=== PATIENT | male | born 1970 | race Caucasian/White ===

== ENCOUNTER 2022-04-14 15:23 | Outpatient (CLI) | payer BC, SELFPAY ==
[2022-04-14 13:23] LABS: Albumin* 3.9 g/dL (3.3-5.0); Chloride* 102 mmol/L (96-114); Sodium* 138 mmol/L (135-149)
[2022-04-14 13:24] LABS: Potassium* 3.6 mmol/L (3.6-5.1)
[2022-04-14 13:26] LABS: Alanine Aminotransferase* 29 U/L (4-50); Alkaline Phosphatase* 121 U/L (40-150); Aspartate Amino Transferase* 37 U/L (12-35); Bilirubin Total* 0.5 mg/dL (0.1-1.5); Blood Urea Nitrogen* 15 mg/dL (7-30); Carbon Dioxide* 28 mmol/L (20-32); Cholesterol* 176 mg/dL (90-199); Creatinine* 1.1 mg/dL (0.5-1.5); Estimated Glomerular Filt Rate 81 ml/min; Glucose* 116 mg/dL (60-115)
[2022-04-14 13:27] LABS: Triglycerides* 241 mg/dL (40-149)
[2022-04-14 13:28] LABS: HDL Cholesterol* 38 mg/dL (>=40); LDL Cholesterol Calculated 90 mg/dL (<100)
[2022-04-14 13:29] LABS: Total Protein* 6.7 g/dL (6.0-8.3)
[2022-04-14 13:58] LABS: PSA Screen* 0.17 ng/mL (0.10-4.00); Thyroid Stimulating Hormone* 0.694 uIU/mL (0.270-4.20)
== END 2022-04-14 15:24 | disposition home or self-care (01) ==
PROVIDERS: PCP Family Medicine; Visit Provider Family Medicine
DX: Z00.00 Encounter for general adult medical examination without abnormal findings (principal); E78.5 Hyperlipidemia, unspecified; E03.9 Hypothyroidism, unspecified; I10 Essential (primary) hypertension; G47.33 Obstructive sleep apnea (adult) (pediatric); Z12.5 Encounter for screening for malignant neoplasm of prostate
CPT/HCPCS: 80053; 80061; 84153; 84443

== ENCOUNTER 2022-11-25 07:04 | Emergency (ER) | payer OTHER, BC, SELFPAY ==
[2022-11-25 07:10] VITALS: BP 155/89; PULSE 81; RESP 18; TEMP 36.6; O2SAT 96; BMI 46.2
--- NOTE | 2022-11-25 07:17 | CRLHL7_ITS ---
For Patients: As a result of the Cures Act, medical imaging exams and procedure reports are released immediately into your electronic medical record. You may view this report before your referring provider. If you have questions, please contact your health care provider. Indication: Injury Technique: A total of three views of the left ankle were acquired. Comparison: None Findings: Bones: Alignment is normal. No fractures or bone lesions. Joint spaces: Unremarkable. Soft tissues: Dorsal calcaneal spur Impression: No acute fracture, dislocation or destructive process. Dorsal calcaneal spur. Dictated by Wei Murcia MD @ 11/25/2022 7:40:11 AM (Electronically Signed)
--- NOTE | 2022-11-25 08:05 | ED_ITS ---
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 He notes that he was able to continue to work another hour but this morning his ankle is much more swollen and sore. Most of his pain is on the his heel and the lateral ankle. He has no numbness or tingling. Movement increases his pain. Denies hurting any other part of the body or loss of consciousness when he fell last night. Related Data Home Medications Medication Instructions Recorded Confirmed biotin 10,000 mcg capsule 10,000 cap PO 04/09/22 04/23/22 melatonin 3 mg-theanine 40 mg tab PO .QHS 04/09/22 04/23/22 tablet multivitamin 1 tab PO QDAY 04/09/22 04/23/22 omeprazole 20 mg capsule,delayed mg PO DAILY 04/09/22 04/23/22 release oxygen-air delivery systems 04/09/22 04/23/22 Previous Rx's Medication Instructions Recorded carvedilol 3.125 mg tablet 3.125 mg PO BID #180 tabs 04/23/22 fluticasone propionate 50 1 spray intranasal DAILY #48 grams 04/23/22 mcg/actuation nasal spray,suspension levothyroxine 50 mcg tablet 50 mcg PO DAILY #90 tabs 04/23/22 losartan 100 1 tab PO DAILY #90 tabs 04/23/22 mg-hydrochlorothiazide 25 mg tablet simvastatin 40 mg tablet 40 mg PO .Bedtime #90 tabs 04/23/22 peg 3350-electrolytes 236 240 ml PO Q10M #4,000 mL 05/05/22 gram-22.74 gram-6.74 gram-5.86 gram solution (Golytely) testosterone 40.5 mg transdermal DAILY #75 grams 05/15/22 Allergies Allergy/AdvReac Type Severity Reaction Status Date / Time Cat hair extract Allergy Severe itching Uncoded 04/23/22 07:21 and swelling Bee venom Allergy Intermediate itching Uncoded 04/23/22 07:21 and swelling Review of Systems Narrative: Denies head injury, loss of consciousness [facility] Surgical History History of open reduction and internal fixation (ORIF) procedure (2015) Status post tonsillectomy and adenoidectomy (1973) Social History Smoking Status: Current every day smoker Little interest or pleasure in doing things: not at all Feeling down, depressed, or hopeless: not at all Exam Narrative: Exam Narrative: Alert and oriented. No acute distress. No respiratory distress. Examination of the left ankle shows edema over the lateral malleolus with point tenderness in that area. Achilles appears to be intact. Sensation is intact. Movement increases discomfort. Const: Vital Signs, click to edit/add: Vital Signs - 24 hr 11/25/22 07:10 Temperature 97.9 F Pulse Rate [Right Pulse Oximeter] 81 Respiratory Rate 18 Blood Pressure [Ri ght Upper Arm] 155/89 H Pulse Oximetry 96 Oxygen Delivery Me thod Room Air Documenting provider has reviewed patient's vital signs: yes Course Course Hospital Course: Will obtain x-ray. Vital Signs Vital signs: Initial Vital Signs Temperature 97.9 F 11/25/22 07:10 Temperature Source Temporal Artery Scan 11/25/22 07:10 Pulse Rate 81 11/25/22 07:10 Respiratory Rate 18 11/25/22 07:10 Blood Pressure 155/89 H 11/25/22 07:10 Blood Pressure Mean 111 11/25/22 07:10 Blood Pressure Position Sitting 11/25/22 07:10 Pulse Oximetry 96 11/25/22 07:10 Oxygen Delivery Method 11/25/22 07:10 Vital Signs Temperature 97.9 F 11/25/22 07:10 Pulse Rate 81 11/25/22 07:10 Respiratory Rate 18 11/25/22 07:10 Blood Pressure 155/89 H 11/25/22 07:10 Pulse Oximetry 96 11/25/22 07:10 Oxygen Delivery Method 11/25/22 07:10 Temperature 97.9 F 11/25/22 07:10 Pulse Rate 81 11/25/22 07:10 Respiratory Rate 18 11/25/22 07:10 Blood Pressure 155/89 H 11/25/22 07:10 Pulse Oximetry 96 11/25/22 07:10 Oxygen Delivery Method 11/25/22 07:10 MDM - Extremity Injury (Lower) MDM Narrative Medical decision making narrative: 1. Left ankle [id number] negative for fracture. Will place this gentleman in a cam walker and have him follow-up with orthopedics. I do not think he would be able to work given the injury and his elevated BMI. May use Tylenol or ibuprofen as needed for discomfort. Imaging Data Left ankle x-ray: Attestation: I have reviewed the pertinent imaging results. My impression: No obvious fracture Radiologist's impression: No obvious fracture Discharge Plan Discharge Clinical Impression: Injury of ankle, left Patient Disposition: Home, Self-Care Condition: Improved Additional Instructions: No work until seen by Orthopedics. Note to accompany you. Ice elevation as much as possible. Ibuprofen or Tylenol may be used for discomfort. Prescriptions: No Action carvedilol 3.125 mg tablet 3.125 mg PO BID Qty: 180 3RF fluticasone propionate 50 mcg/actuation spray,suspension 1 spray intranasal DAILY Qty: 48 3RF levothyroxine 50 mcg tablet 50 mcg PO DAILY Qty: 90 3RF losartan-hydrochlorothiazide 100-25 mg tablet 1 tab PO DAILY Qty: 90 3RF simvastatin 40 mg tablet 40 mg PO .Bedtime Qty: 90 3RF omeprazole 20 mg capsule,delayed release(DR/EC) PO DAILY biotin 10,000 mcg capsule 10,000 cap PO multivitamin Tablet 1 tab PO QDAY melatonin-theanine 3-40 mg tablet PO .QHS (DME) oxygen-air delivery systems Device See Rx Instructions .Route Rx Instructions: As directed peg 3350-electrolytes [Golytely] 236-22.74-6.74 -5.86 gram recon soln 240 ml PO Q10M Qty: 4000 0RF Rx Instructions: until fecal effluent is clear testosterone 20.25 mg/1.25 gram (1.62 %) gel in metered-dose pump 40.5 mg transdermal DAILY Qty: 75 5RF Follow Up/Referrals: Damien Terry MD [Primary Care Provider] - Stand Alone Forms: [facility] Info Instructions
== END 2022-11-25 08:33 | disposition home or self-care (01) ==
PROVIDERS: Emergency Provider Family Medicine; PCP Family Medicine
DX: M25.572 Pain in left ankle and joints of left foot (principal); W00.9XXA Unspecified fall due to ice and snow, initial encounter
CPT/HCPCS: 73610; 99283

== ENCOUNTER 2022-12-15 10:05 | Outpatient (CLI) | payer BC, SELFPAY | END 2022-12-15 10:06 | disposition home or self-care (01) | LOC: NFLDREF 12-17 14:31 | PROVIDERS: PCP Family Medicine; Referring Provider Family Medicine | DX: E29.1 Testicular hypofunction (principal); E03.9 Hypothyroidism, unspecified | CPT/HCPCS: 84403 ==

== ENCOUNTER 2023-05-25 07:50 | Outpatient (CLI) | payer BC, SELFPAY | END 2023-05-25 07:51 | disposition home or self-care (01) | LOC: NFLDREF 21:51 | PROVIDERS: PCP Family Medicine; Referring Provider Family Medicine; Visit Provider Family Medicine | DX: Z00.00 Encounter for general adult medical examination without abnormal findings (principal); E03.9 Hypothyroidism, unspecified; E78.5 Hyperlipidemia, unspecified; R73.03 Prediabetes; E29.1 Testicular hypofunction; I10 Essential (primary) hypertension; E66.01 Morbid (severe) obesity due to excess calories; R73.09 Other abnormal glucose | CPT/HCPCS: 80053; 80061; 84403; 84439; 84443 ==

== ENCOUNTER 2023-09-09 07:31 | Outpatient (CLI) | payer BC, SELFPAY | END 2023-09-09 07:32 | disposition home or self-care (01) | LOC: NFLDREF 09-10 09:16 | PROVIDERS: PCP Family Medicine; Referring Provider Family Medicine; Visit Provider Family Medicine | DX: E87.5 Hyperkalemia (principal); E03.9 Hypothyroidism, unspecified | CPT/HCPCS: 84132; 84443 ==

== ENCOUNTER 2024-03-16 22:17 | Inpatient (IN) | payer BC, SELFPAY ==
[2024-03-16 22:24] VITALS: BP 150/78; PULSE 101; RESP 20; TEMP 36.8; O2SAT 96; BMI 48.8
--- NOTE | 2024-03-16 22:32 | CRLHL7_ITS ---
For Patients: As a result of the Century Cures Act, medical imaging exams and procedure reports are released immediately into your electronic medical record. You may view this report before your referring provider. If you have questions, please contact your health care provider. INDICATION: Right-sided abdominal pain. TECHNIQUE: CT abdomen and pelvis acquired with 149 cc of Isovue 370 IV contrast. COMPARISON: None. FINDINGS: Lower chest: Thin band of scar versus atelectasis in the right lower lobe. Liver: Unremarkable. Normal in size and attenuation. No suspicious masses. Gallbladder and bile ducts: Unremarkable. No stones or inflammation. No biliary dilatation. Pancreas: Unremarkable. No mass or inflammation. Spleen: Unremarkable. Normal in size. No masses. Adrenal glands: Unremarkable. No nodules. Kidneys: Unremarkable. No suspicious masses, stones, or hydronephrosis. GI tract: Small air-filled duodenal diverticulum in the 3rd portion of the duodenum. Markedly inflamed and dilated appendix in the right lower quadrant measuring 1.8 cm in diameter with robust periappendiceal inflammatory stranding. No evidence for perforation or abscess formation. Associated inflammation of the cecal base. No small bowel obstruction. The remainder of the colon is unremarkable. Vasculature: Abdominal aorta is normal in caliber. Mesenteric arteries are patent. Lymph nodes: No lymphadenopathy. Peritoneum/Abdominal Wall: Right lower quadrant inflammatory stranding. No free fluid, focal fluid collection, or free air. Unremarkable abdominal wall. Pelvis: Unremarkable. Bones: Unremarkable for age. IMPRESSION: Severely inflamed, acute appendicitis in the right lower quadrant. No evidence for perforation or abscess formation. Please note that all CT scans at this facility use dose modulation, iterative reconstruction, and/or weight-based dosing when appropriate to reduce radiation dose to as low as reasonably achievable. Dictated by Shaun Iniguez MD @ 03/16/2024 11:32:58 PM (Electronically Signed)
--- NOTE | 2024-03-16 22:35 | ED.GENADULT ---
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 Patient reports the pain in his abdomen has gotten worse it is in the right lateral quadrant lateral to his umbilicus and a little bit lower. He has not had any abdominal surgery. He does have other history of hypokalemia, allergies, hypothyroidism, hypogonadism, LEANNE, and morbid obesity. He has had GE reflux and elevated A1c as well. He also has hypertension. He reports the pain is worse. He has not had nausea. Not any blood in his urine or no urinary symptoms. He does report that on the car ride here he had increasing pain in his abdomen they would hit bumps in the car. Related Data Home Medications ?Medication ?Instructions ?Recorded ?Confirmed multivitamin 1 tab PO QDAY 04/09/22 03/16/24 oxygen-air delivery systems 04/09/22 05/28/23 omeprazole 20 mg capsule,delayed 40 mg PO DAILY 12/18/22 03/16/24 release biotin 10,000 mcg capsule 10,000 mcg PO DAILY 05/28/23 03/17/24 levothyroxine 25 mcg tablet 75 mcg PO QDAY 03/16/24 03/16/24 simvastatin 40 mg tablet 40 mg PO HS 03/17/24 03/17/24 Previous Rx's ?Medication ?Instructions ?Recorded carvedilol 3.125 mg tablet 3.125 mg PO BID #180 tabs 04/27/23 losartan 100 1 tab PO DAILY #90 tabs 05/28/23 mg-hydrochlorothiazide 25 mg tablet potassium chloride 10 mEq 10 meq PO QDAY #90 caps 05/28/23 capsule,extended release tadalafil 10 mg tablet 10 - 20 mg (1 - 2 x 10 mg) PO QDAY 05/28/23 PRN sexual activity #10 tabs testosterone 81 mg transdermal DAILY #150 grams 07/22/23 amoxicillin 875 mg-potassium 1 tab PO BID 6 days #12 tabs 03/19/24 clavulanate 125 mg tablet hydrocodone 5 mg-acetaminophen 325 1 tab PO Q6H PRN pain #15 tabs 07/06/24 mg tablet sennosides 8.6 mg capsule (senna) 8.6 mg PO DAILY PRN constipation 03/19/24 #90 caps Allergies Allergy/AdvReac Type Severity Reaction Status Date / Time Cat hair extract Allergy Severe itching Uncoded 05/28/23 07:12 and swelling Bee venom Allergy Intermediate itching Uncoded 05/28/23 07:12 and swelling Review of Systems Status of ROS: Reports: 6 or more systems reviewed and unremarkable except as noted in History and below [facility] Surgical History Status post tonsillectomy and adenoidectomy (1973) ?Z90.89 - Acquired absence of other organs (ICD-10) History of open reduction and internal fixation (ORIF) procedure (2015) ?Z98.890 - Other specified postprocedural states (ICD-10) Social History What is your current living situation?: I presently have a place to live Problems where you live: no known problems Problems where you live details: none In the past 12 months, utilities in danger of being shut off: no In past 12 months, lack of transportation kept you from medical appts, meetings, work, or getting things needed for daily living: no In the past 12 mos, have been you worried that your food would run out before you had money to buy more?: never true In the past 12 mos, the food you bought just didn't last and you didn't have money to buy more?: never true Smoking Status: Current every day smoker What tobacco products do you use: cigarettes Smoking packs per day: 1.5 Smoking cigarettes per day: 30.0 Second hand tobacco smoke exposure: Yes How often do you have a drink containing alcohol: 2-4 times a month How often do you have six or more drinks on one occasion: Never AUDIT-C Alcohol total score: 2 Non-prescribed substance use: denies use How often does anyone, including family, friends and others, physically hurt you: never How often does anyone, including family, friends and others, insult or talk down to you: never How often does anyone, including family, friends and others, threaten you with harm: never How often does anyone, including family, friends and others, scream or curse at you: never Little interest or pleasure in doing things: not at all Feeling down, depressed, or hopeless: not at all Exam Narrative: Exam Narrative: Objective: In general Phil's in no apparent distress, his vital signs look largely within normal limits other than slightly elevated blood pressure, he is afebrile. The patient has elevated BMI H ENT is unremarkable, no facial asymmetry no scleral icterus Neck is supple Lungs are clear Heart rate and rhythm regular 2/6 systolic murmur, occasional ectopic beat noted Abdomen obese mild tenderness in the right lateral and right lower quadrant, mild guarding. No palpable masses. Denies pain. Extremities good perfusion Neurologic nonfocal. Const: Vital Signs, click to edit/add: Vital Signs - 24 hr 03/16/24 22:24 Temperature 98.3 F Pulse Rate [Pulse Oximeter] 101 H Respiratory Rate 20 Blood Pressure [Ri ght Upper Arm] 150/78 H Pulse Oximetry 96 Oxygen Delivery Me thod Room Air Course Vital Signs Vital signs: Initial Vital Signs Temperature 98.3 F 03/16/24 22:24 Temperature Source Temporal Artery Scan 03/16/24 22:24 Pulse Rate 101 H 03/16/24 22:24 Respiratory Rate 20 03/16/24 22:24 Blood Pressure 150/78 H 03/16/24 22:24 Blood Pressure Mean 102 03/16/24 22:24 Pulse Oximetry 96 03/16/24 22:24 Oxygen Delivery Method Room Air 03/16/24 22:24 Vital Signs Temperature 98.3 F 03/16/24 22:24 Pulse Rate 101 H 03/16/24 22:24 Respiratory Rate 20 03/16/24 22:24 Blood Pressure 150/78 H 03/16/24 22:24 Pulse Oximetry 96 03/16/24 22:24 Oxygen Delivery Method Room Air 03/16/24 22:24 Temperature 97.2 F L 03/22/24 03:00 Pulse Rate 85 03/22/24 03:00 Respiratory Rate 24 03/22/24 03:00 Blood Pressure 134/71 03/22/24 03:00 Pulse Oximetry 92 03/22/24 03:00 Oxygen Delivery Method Room Air 03/21/24 23:00 Oxygen Flow Rate 1 03/21/24 03:00 Fraction of Inspired Oxygen 03/21/24 07:58 Medications Administered Medications: Generic Name Dose Route Start Last Admin Trade Name Freq PRN Reason Stop Dose Admin Hydrocodone Bitart/Acetaminophen 1 - 2 tab 03/17/24 14:12 03/22/24 08:40 Hydrocodone-Acetamin 5-325 Mg 1 Tab PO 2 tab Q4H PRN Administration Pain Albuterol/Ipratropium 1 neb 03/19/24 08:45 03/22/24 08:39 Iprat-Albut 0.5-2.5 Mg/3 Ml Neb IH 1 neb Q6H ELISE Administration Calcium Carbonate 500 mg 03/20/24 09:00 03/22/24 08:39 Calcium Carbonate 500 Mg Chew PO 500 mg BID ELISE Administration Carvedilol 3.125 mg 03/17/24 09:00 03/22/24 08:40 Carvedilol 6.25 Mg Tablet PO 3.125 mg BID ELISE Administration Diphenhydramine HCl 25 mg 03/21/24 15:02 03/21/24 22:55 Diphenhydramine 25 Mg Capsule PO 25 mg HS PRN Administration insomnia Enoxaparin Sodium 40 mg 03/18/24 11:00 03/21/24 11:39 Enoxaparin 40 Mg/0.4 Ml Inj SUBCUT 40 mg Q24H ELISE Administration Hydrochlorothiazide 25 mg 03/18/24 10:15 03/18/24 10:33 Hydrochlorothiazide 25 Mg Tablet PO 25 mg DAILY ELISE Administration Hydromorphone HCl 0.5 - 1 mg 03/17/24 22:16 03/21/24 07:56 Hydromorphone 0.5 Mg/0.5 Ml Inj IVP 0.5 mg Q2H PRN Administration severe Pain Piperacillin Sod/Tazobactam 100 mls @ 200 mls/hr 03/17/24 06:00 03/22/24 07:41 Sod 3.375 gm/ Sodium Chloride IVPB Infused Q6H ELISE Infusion Vancomycin HCl 2,000 mg/ 520 mls @ 260 mls/hr 03/21/24 09:00 03/22/24 02:39 Sodium Chloride IVPB Infused Q12H ELISE Infusion Protocol Lactated Ringer's 1,000 mls @ 100 mls/hr 03/21/24 00:00 03/22/24 05:36 Lactated Ringers 1000 Ml IV 100 mls/hr .Q10H ELISE Administration Levothyroxine Sodium 25 mcg 03/18/24 10:15 03/22/24 06:20 Levothyroxine 25 Mcg Tablet PO 25 mcg DAILY@0700 ELISE Administration Losartan Potassium 100 mg 03/18/24 10:15 03/22/24 08:40 Losartan Potassium 50 Mg Tablet PO 100 mg DAILY ELISE Administration Nicotine 1 patch 03/19/24 08:45 03/22/24 08:39 Nicotine 21 Mg Patch TRANSDERMA 1 patch Q24H ELISE Administration Omeprazole 40 mg 03/18/24 07:00 03/22/24 06:20 Omeprazole [address] PO 40 mg DAILY@0700 ELISE Administration Potassium Chloride 20 meq 03/20/24 09:00 03/22/24 08:40 Potassium Chloride 10 Meq Capsule Er PO 20 meq DAILY ELISE Administration Senna/Docusate Sodium 1 tab 03/19/24 21:00 03/22/24 08:40 Sennosides/Docusate Tablet PO 1 tab BID ELISE Administration Simvastatin 40 mg 03/17/24 21:00 03/21/24 20:24 Simvastatin 40 Mg Tablet PO 40 mg HS ELISE Administration Sodium Chloride 5 ml 03/17/24 00:58 03/18/24 04:13 Sodium Chloride 0.9 % (Flush) 10 Ml Syringe IVF 5 ml .FLUSH PRN Administration Sodium Chloride 5 ml 03/17/24 09:00 03/21/24 20:25 Sodium Chloride 0.9 % (Flush) 10 Ml Syringe IVF 5 ml BID ELISE Administration Sodium Chloride 250 ml 03/17/24 06:00 03/22/24 05:57 0.9 % Sodium Chloride 250 Ml IV Not Given Q24H ELISE Discontinued Medications Generic Name Dose Route Start Last Admin Trade Name Freq PRN Reason Stop Dose Admin Bupivacaine HCl 30 ml 03/17/24 08:52 03/17/24 08:50 Bupivacaine 0.25% 30 Ml INJECTION 03/17/24 08:53 5 ml ONCE ONE Administration Hydromorphone HCl 0.5 mg 03/16/24 22:32 03/16/24 23:23 Hydromorphone 0.5 Mg/0.5 Ml Inj IVP 03/16/24 22:33 0.5 mg ONCE ONE Administration Hydromorphone HCl 0.1 - 0.5 mg 03/17/24 14:12 03/17/24 21:54 Hydromorphone 0.5 Mg/0.5 Ml Inj IVP 0.5 mg Q2H PRN Administration Pain Sodium Chloride 1,000 mls @ 6,000 mls/hr 03/16/24 22:45 03/16/24 23:52 0.9 % Sodium Chloride 1000 Ml IV 03/16/24 22:54 Infused .Q10M ELISE Infusion Piperacillin Sod/Tazobactam 100 mls @ 200 mls/hr 03/16/24 23:44 03/17/24 00:42 Sod 4.5 gm/ Sodium Chloride IVPB 03/16/24 23:45 Infused ONCE ONE Infusion Lactated Ringer's 1,000 mls @ 75 mls/hr 03/17/24 01:05 03/22/24 07:44 Lactated Ringers 1000 Ml IV Infused .[id number] ELISE Infusion Potassium Chloride 10 meq in 100 mls @ 100 mls/hr 03/17/24 02:45 03/17/24 06:26 Potassium Chloride IVPB 03/17/24 06:44 Infused Q90M ELISE Infusion Lactated Ringer's 1,000 mls @ 125 mls/hr 03/17/24 10:40 03/22/24 07:44 Lactated Ringers 1000 Ml IV Infused .Q8H ELISE Infusion Piperacillin Sod/Tazobactam 100 mls @ 200 mls/hr 03/17/24 12:02 03/17/24 21:09 Sod 3.375 gm/ Sodium Chloride IVPB 03/17/24 12:03 Infused ONCE ONE Infusion Acetaminophen 1,000 mg in 100 mls @ 400 mls/hr 03/18/24 11:00 03/18/24 18:28 Ofirmev IVPB Not Given Q6H ELISE Lactated Ringer's 1,000 mls @ 100 mls/hr 03/18/24 12:52 03/22/24 07:38 Lactated Ringers 1000 Ml IV Infused .Q10H ELISE Infusion Lactated Ringer's 1,000 mls @ 50 mls/hr 03/19/24 08:43 03/22/24 07:39 Lactated Ringers 1000 Ml IV Infused .Q20H ELISE Infusion Calcium Gluconate/Sodium Chloride 1,000 mg in 50 mls @ 100 mls/hr 03/20/24 07:34 03/22/24 07:43 Calcium Gluc 1,000mg/50 Ml IVPB 03/20/24 08:03 Infused ONCE ONE Infusion Vancomycin HCl 2,000 mg/ 520 mls @ 260 mls/hr 03/20/24 21:00 03/20/24 23:35 Sodium Chloride IVPB 03/20/24 22:59 Infused ONCE ONE Infusion Protocol Ketorolac Tromethamine 15 mg 03/18/24 11:00 03/19/24 05:36 Ketorolac 15 Mg/Ml Inj IVP 15 mg Q6H ELISE Administration Lorazepam 1 mg 03/22/24 04:12 03/22/24 04:44 Lorazepam 1 Mg Tablet PO 03/22/24 04:13 1 mg ONCE ONE Administration Morphine Sulfate 4 mg 03/17/24 00:58 03/17/24 06:34 Morphine 4 Mg/Ml Inj IVP 4 mg Q1H PRN Administration Potassium Bicarbonate 25 meq 03/19/24 09:45 03/19/24 12:21 Potassium Bicarb 25 Meq Effervescent Tab PO 03/19/24 11:46 25 meq Q2H ELISE Administration Potassium Bicarbonate 25 meq 03/20/24 07:34 03/20/24 08:51 Potassium Bicarb 25 Meq Effervescent Tab PO 03/20/24 07:35 25 meq ONCE ONE Administration Potassium Bicarbonate 25 meq 03/21/24 15:30 03/21/24 17:44 Potassium Bicarb 25 Meq Effervescent Tab PO 03/21/24 17:31 25 meq Q2H ELISE Administration Potassium Chloride 10 meq 03/18/24 10:15 03/19/24 09:28 Potassium Chloride 10 Meq Capsule Er PO 10 meq DAILY ELISE Administration Medical Decision Making [facility] Narrative Medical decision making narrative: 53-year-old obese male with LEANNE, hypertension, elevated blood sugar/A1c history presents with right lower quadrant pain worsening over a couple of days. This was preceded by diarrhea, now he has increasing pain. At this point I think he needs a CT scan his abdomen pelvis with IV contrast to rule out colitis, rule out appendicitis, rule out diverticulitis. Patient does not give symptoms of a kidney stone but that certainly be a possibility as well remotely. Will check electrolytes labs. IV fluid. IV pain medication. Will keep NPO for now disposition pending findings above. Addendum 11:37 p.m.: The patient has severely inflamed acute appendicitis in the right lower quadrant, there is no evidence of perforation or abscess formation. Discussed with Dr grace who will advise about a treatment planning and timing of removal. It may be reasonable to treat the patient with antibiotics and then schedule this for early tomorrow morning if deemed appropriate by the surgeon. NPO status for now. IV fluid. Lab Data Labs: Lab Results 03/16/24 03/16/24 03/17/24 Range/Units 22:32 23:10 02:15 WBC 13.53 H (4.50-11.00) K/uL RBC 4.84 (4.30-5.90) m/uL Hgb 14.5 (13.5-17.5) gm/dL Hct 44.2 (37.0-53.0) % MCV 91 (80-100) fL MCH 30 (26-34) pg MCHC 33 (32-36) gm/dL RDW Coeff of Margo 13.9 (11.5-15.5) % Plt Count 188 (140-440) K/uL Neut % (Auto) 78.6 H (42.0-72.0) % Lymph % (Auto) 11.7 L (20-44) % Winston % (Auto) 7.8 (0.0-11.0) % Eos % (Auto) 1.3 (0.0-7.0) % Baso % (Auto) 0.2 (0.0-3.0) % Neut # (Auto) 10.60 H (1.7-7.0) K/uL Lymph # (Auto) 1.60 (0.90-2.90) K/uL Winston # (Auto) 1.10 H (0.00-0.90) K/UL Eos # (Auto) 0.20 (0.00-0.50) K/uL Baso # (Auto) 0.00 (0.00-0.30) K/uL Abs Immat Gran (auto) 0.10 (0.00-0.30) K/uL Imm/Tot Granulo (auto) 0.4 % Sodium 135 (135-149) mmol/L Potassium 3.2 L (3.6-5.1) mmol/L Chloride 100 (96-114) mmol/L Carbon Dioxide 28 (20-32) mmol/L Anion Gap 7 (7-15) mEq/L BUN 15 (7-30) mg/dL Creatinine 1.1 (0.5-1.5) mg/dL Estimated Creat Clear 90.30 Estimated GFR 80 ml/min Glucose 163 H (60-115) mg/dL Calcium 8.6 (8.4-10.6) mg/dL Magnesium (1.5-2.6) mg/dL Total Bilirubin 1.0 (0.1-1.5) mg/dL Direct Bilirubin 0.5 (0.0-0.5) mg/dL AST 31 (12-35) U/L ALT 21 (4-50) U/L Alkaline Phosphatase 82 (40-150) U/L C-Reactive Protein 12.5 H (0.5-1.0) mg/dL Total Protein 7.1 (6.0-8.3) g/dL Albumin 4.3 (3.3-5.0) g/dL Amylase 58 (18-89) U/L Urine Color Yellow (Yellow) Urine Appearance Clear (Clear) Urine pH 6.0 (5.0-8.5) Ur Specific [place] 1.010 (1.000-1.030) Urine Protein Trace A (Negative) Urine Glucose (UA) Negative (Negative) Urine Ketones Negative (Negative) Urine Blood Negative (Negative) Urine Nitrite Negative (Negative) Urine Bilirubin Negative (Negative) Urine Urobilinogen 0.2 (0.2-1.0) Ur Leukocyte Esterase Negative (Negative) Urine RBC 0-2 (0-2) Urine WBC 0-2 (0-5) Ur Squamous Epith Cells None (None-Few) Urine Bacteria None (None) 03/17/24 Range/Units 06:09 WBC (4.50-11.00) K/uL RBC (4.30-5.90) m/uL Hgb (13.5-17.5) gm/dL Hct (37.0-53.0) % MCV (80-100) fL MCH (26-34) pg MCHC (32-36) gm/dL RDW Coeff of Margo (11.5-15.5) % Plt Count (140-440) K/uL Neut % (Auto) (42.0-72.0) % Lymph % (Auto) (20-44) % Winston % (Auto) (0.0-11.0) % Eos % (Auto) (0.0-7.0) % Baso % (Auto) (0.0-3.0) % Neut # (Auto) (1.7-7.0) K/uL Lymph # (Auto) (0.90-2.90) K/uL Winston # (Auto) (0.00-0.90) K/UL Eos # (Auto) (0.00-0.50) K/uL Baso # (Auto) (0.00-0.30) K/uL Abs Immat Gran (auto) (0.00-0.30) K/uL Imm/Tot Granulo (auto) % Sodium (135-149) mmol/L Potassium (3.6-5.1) mmol/L Chloride (96-114) mmol/L Carbon Dioxide (20-32) mmol/L Anion Gap (7-15) mEq/L BUN (7-30) mg/dL Creatinine (0.5-1.5) mg/dL Estimated Creat Clear Estimated GFR ml/min Glucose (60-115) mg/dL Calcium (8.4-10.6) mg/dL Magnesium 2.2 (1.5-2.6) mg/dL Total Bilirubin (0.1-1.5) mg/dL Direct Bilirubin (0.0-0.5) mg/dL AST (12-35) U/L ALT (4-50) U/L Alkaline Phosphatase (40-150) U/L C-Reactive Protein (0.5-1.0) mg/dL Total Protein (6.0-8.3) g/dL Albumin (3.3-5.0) g/dL Amylase (18-89) U/L Urine Color (Yellow) Urine Appearance (Clear) Urine pH (5.0-8.5) Ur Specific [place] (1.000-1.030) Urine Protein (Negative) Urine Glucose (UA) (Negative) Urine Ketones (Negative) Urine Blood (Negative) Urine Nitrite (Negative) Urine Bilirubin (Negative) Urine Urobilinogen (0.2-1.0) Ur Leukocyte Esterase (Negative) Urine RBC (0-2) Urine WBC (0-5) Ur Squamous Epith Cells (None-Few) Urine Bacteria (None) Discharge Plan Discharge Clinical Impression: Right sided abdominal pain, Acute appendicitis Patient Disposition: Admitted As Observation Condition: Stable Activity Level: No strenuous activity Activity Detail: Activity as tolerated. Avoid strenuous activity. No lifting greater than 20 lb for 6 weeks. Discharge Diet: Regular
--- OUTSIDE RECORDS SUMMARY | 2024-03-16 22:40 | XMS_ITS | Clinical Summary ---
Author Organization [facility] Address [address] [place] [address] Care Team Providers Care Tag Meter Operator Name Role Phone Damien Terry MD Primary Care Provider [phone] Allergies No known active allergies Social History Tobacco Use Types Packs/Day Years Used Date Smoking Tobacco: Never Assessed Sex and Gender Information Value Date Recorded Sex Assigned at Not on file Gender Identity Not on file Sexual Orientation Not on file Last Filed Vital Signs Vital Sign Reading Time Taken Comments Blood Pressure 138/88 11/24/2019 2:00 PM CDT Pulse 87 11/24/2019 2:00 PM CDT Temperature 37.2 ??C (99 ??F) 11/24/2019 1:18 PM CDT Respiratory Rate 12 11/24/2019 2:00 PM CDT Oxygen Saturation 94% 11/24/2019 2:00 PM CDT Inhaled Oxygen Concentration - - Weight 151 kg (332 lb 14.3 oz) 11/24/2019 1:19 P M CDT Height - - Body Mass Index - - Plan of Treatment Not on file Care Teams Tag Meter Operator Relationship Specialty Start Date End Date Damien Terry MD PCP - General Family Practice 11/28/19
--- OUTSIDE RECORDS SUMMARY | 2024-03-16 22:40 | XMS_ITS | Clinical Summary ---
Author Organization [facility] Address [place], [place] [address] Care Team Providers Care Cancer Center Director Name Role Phone Pcp, No Primary Care Provider Unavailabl e Allergies No known active allergies Medications Medication Sig Dispensed Refills Start Date End Date Status carvediloL (COREG) 3.125 mg tablet Take 3.125 mg by mouth 2 times daily. 12/27/2020 Active fluticasone (50 mcg per actuation) nasal solution (FLONASE) SHAKE LIQUID WELL AND USE 1 SPRAY IN EACH NOSTRIL DAILY 11/26/2020 Active levothyroxine (SYNTHROID) 75 mcg tablet Take 75 mcg by mouth once daily. 11/26/2020 Active losartan-hydrochloroth iazide (HYZAAR) 100-25 mg tablet Take 1 Tablet by mouth once daily. 11/26/2020 Active simvastatin (ZOCOR) 40 mg tablet Take 40 mg by mouth at bedtime. 01/23/2021 Active Social History Tobacco Use Types Packs/Day Years Used Date Smoking Tobacco: Never Assessed Sex and Gender Information Value Date Recorded Sex Assigned at Not on file Gender Identity Not on file Sexual Orientation Not on file Last Filed Vital Signs Vital Sign Reading Time Taken Comments Blood Pressure 132/85 02/26/2021 1:07 PM CDT Pulse 110 02/26/2021 1:07 PM CDT Temperature - - Respiratory Rate - - Oxygen Saturation 94% 02/26/2021 1:07 PM CDT Inhaled Oxygen Concentration - - Weight 160.8 kg (354 lb 6.4 oz) 02/26/2021 1:07 PM CDT Height - - Body Mass Index - - Plan of Treatment Health Maintenance Due Date Last Done Comments Tdap 1981 Depression screening for age 12+ 1982 HIV for age 15-65 1985 BMI (ht and wt on same day) for age 18+ 1988 Hepatitis C screening for ag e 18-79 1988 Tetanus booster 1990 Colonoscopy through age 75 2015 Lipids for age 45-75 2015 Zoster (shingles) series for age 50+ (1 of 2) 2020 COVID-19 vaccine series (2022-24 season) 2023 Influenza for age 50-64 05/15/2024 Pneumococcal series for age 6-64 Aged Out No longer eligible based on patient's age to complete this topic Care Teams Cancer Center Director Relationship Specialty Start Date End Date Pcp, No . PCP - General 11/15/18
--- OUTSIDE RECORDS SUMMARY | 2024-03-16 22:40 | XMS_ITS | Referral Summary ---
Author Organization [facility] Address [address] [facility] [place] [address] Care Team Providers Care Head Grower Name Role Phone Damien Terry MD Primary Care Provider [phone] Allergies No known active allergies Social History [...] of Treatment Not on file Care Teams Head Grower Relationship Specialty Start Date End Date Damien Terry MD PCP - General Family Practice 11/28/19
[2024-03-16 23:00] VITALS: O2SAT 94
[2024-03-16] MEDS: 0.9 % SODIUM CHLORIDE 1000 ml 1,000 ML 6000 ML IV (23:15)
[2024-03-16 23:21] LABS: Basophils Percent Auto 0.2 % (0.0-3.0); Eosinophils Percent Auto 1.3 % (0.0-7.0); Hematocrit 44.2 % (37.0-53.0); Hemoglobin* 14.5 gm/dL (13.5-17.5); Immature Granulocytes Pct Auto 0.4 %; Lymphocytes Percent Auto 11.7 % (20-44); Mean Corpuscular HGB Conc 33 gm/dL (32-36); Mean Corpuscular Hemoglobin 30 pg (26-34); Mean Corpuscular Volume 91 fL (80-100); Monocytes Percent Auto 7.8 % (0.0-11.0); Neutrophils Percent Auto 78.6 % (42.0-72.0); Platelet Count* 188 K/uL (140-440); RDW Coefficient of Variation % 13.9 % (11.5-15.5); Red Blood Count 4.84 m/uL (4.30-5.90); White Blood Count* 13.53 K/uL (4.50-11.00)
[2024-03-16] MEDS: HYDROmorphone 0.5 mg/0.5 ml inj IVP (23:23)
[2024-03-16 23:37] LABS: Chloride* 100 mmol/L (96-114)
[2024-03-16 23:38] LABS: Albumin* 4.3 g/dL (3.3-5.0); Potassium* 3.2 mmol/L (3.6-5.1); Sodium* 135 mmol/L (135-149)
[2024-03-16 23:40] LABS: Creatinine* 1.1 mg/dL (0.5-1.5); Estimated Glomerular Filt Rate 80 ml/min
[2024-03-16 23:41] LABS: Alanine Aminotransferase* 21 U/L (4-50); Alkaline Phosphatase* 82 U/L (40-150); Anion Gap 7 mEq/L (7-15); Aspartate Amino Transferase* 31 U/L (12-35); Bilirubin Direct* 0.5 mg/dL (0.0-0.5); Blood Urea Nitrogen* 15 mg/dL (7-30); Calcium* 8.6 mg/dL (8.4-10.6); Carbon Dioxide* 28 mmol/L (20-32); Glucose* 163 mg/dL (60-115); Total Protein* 7.1 g/dL (6.0-8.3)
[2024-03-16] MEDS: PIPERACILLIN/TAZOBACTAM 4.5 GM in 0.9 % SODIUM CHLORIDE Mini-bag 100 ML IVPB (23:52)
[2024-03-16 23:54] LABS: Slide Review Reflex No
[2024-03-17] VITALS (29 sets, daily range): BP systolic 110–164; BP diastolic 67–86; PULSE 82–99; RESP 16–32; TEMP 36.4–37.2; O2SAT 87–95; BMI 46.0
[2024-03-17 00:04] LABS: C Reactive Protein* 12.5 mg/dL (0.5-1.0)
[2024-03-17 00:20] LABS: Amylase* 58 U/L (18-89)
--- NOTE | 2024-03-17 00:58 | W.PM.TELEH&P ---
Telehealth- H&P: HPI History of Present Illness Date Seen: 03/17/24 Chief complaint: stomach pain Narrative: Phil Ignacio is seen as an Interactive Telehealth visit. Phil Ignacio is a 53 year old male who has a past medical history notable for hypertension, hyperlipidemia, obesity and LEANNE who presented for evaluation of abdominal pain. The pain started in 2 days prior to admission, initially it was generalized lower abdominal pain which she described as aching/burning. The pain slowly migrated to the right lower quadrant although still occasionally radiates to the left lower quadrant. It is worse with any sort of activity or deep breathing. He did have a low-grade fever with onset of symptoms and has had intermittent chills. He denies any chest pain or shortness of breath. Denies any other new symptoms. He was seen in the emergency room and imaging showed acute appendicitis. Review of Systems Status of ROS: Reports: 10 or more systems reviewed and unremarkable except as noted in History and below [facility] Surgical History Status post tonsillectomy and adenoidectomy (1973) ?Z90.89 - Acquired absence of other organs (ICD-10) History of open reduction and internal fixation (ORIF) procedure (2015) ?Z98.890 - Other specified postprocedural states (ICD-10) Social History What is your current living situation?: I presently have a place to live Problems where you live: no known problems In the past 12 months, utilities in danger of being shut off: no In past 12 months, lack of transportation kept you from medical appts, meetings, work, or getting things needed for daily living: no In the past 12 mos, have been you worried that your food would run out before you had money to buy more?: never true In the past 12 mos, the food you bought just didn't last and you didn't have money to buy more?: never true Smoking Status: Current every day smoker What tobacco products do you use: cigarettes Smoking packs per day: 1.5 Smoking cigarettes per day: 30.0 Second hand tobacco smoke exposure: Yes How often do you have a drink containing alcohol: 2-4 times a month AUDIT-C Alcohol total score: 2 Non-prescribed substance use: denies use How often does anyone, including family, friends and others, physically hurt you: never How often does anyone, including family, friends and others, insult or talk down to you: never How often does anyone, including family, friends and others, threaten you with harm: never How often does anyone, including family, friends and others, scream or curse at you: never Little interest or pleasure in doing things: not at all Feeling down, depressed, or hopeless: not at all Meds Home Medications and Allergies Home Medications ?Medication ?Instructions ?Recorded ?Confirmed ?Type melatonin 3 mg-theanine 40 mg tab PO .QHS 04/09/22 05/28/23 History tablet multivitamin 1 tab PO QDAY 04/09/22 03/16/24 History oxygen-air delivery systems 04/09/22 05/28/23 History omeprazole 20 mg capsule,delayed 40 mg PO DAILY 12/18/22 03/16/24 History release biotin 10,000 mcg capsule 10,000 mcg PO .QD 05/28/23 05/28/23 History levothyroxine 25 mcg tablet 75 mcg PO QDAY 03/16/24 03/16/24 History Allergies Allergy/AdvReac Type Severity Reaction Status Date / Time Cat hair extract Allergy Severe itching Uncoded 05/28/23 07:12 and swelling Bee venom Allergy Intermediate itching Uncoded 05/28/23 07:12 and swelling Exam Narrative Exam Narrative: Physical Exam GENERAL: ?vital signs reviewed, well developed and nourished, in no distress HEENT: pupils are equal round, extraocular movements are grossly within normal limits and oral mucosa is dry NECK: Supple without lymphadenopathy or thyromegaly according to nursing staff examination observation HEART: Regular rate and rhythm without any rubs, murmurs, or gallops. LUNGS: Clear to auscultation bilaterally with good air movement throughout ABDOMEN: Observation from nurse assisted exam, abdomen appears soft, moderately tender at RLQ, and nondistended with Positive bowel sounds noted. Visceral adiposity noted EXTREMITIES: Strength and sensation is observed to be grossly within normal limits in the upper and lower extremities.? No focal strength deficit is observed. Trace lower extremity edema SKIN:? Observed warm and dry with color normal Const Vital Signs, click to edit/add: Vital Signs - 24 hr 03/16/24 22:24 03/16/24 23:00 03/17/24 00:41 Temperature 98.3 F 98.3 F Pulse Rate [Pulse Oximeter] 101 H 89 Respiratory Rate 20 20 Blood Pressure [Right Upper Arm] 150/78 H 135/74 Pulse Oximetry 96 94 94 Oxygen Delivery Method Room Air Room Air Hospitalist - H&P: Result Labs Labs: Short CBC 03/16/24 Range/Units 23:10 WBC 13.53 H (4.50-11.00) K/uL Hgb 14.5 (13.5-17.5) gm/dL Hct 44.2 (37.0-53.0) % Plt Count 188 (140-440) K/uL BMP 03/16/24 22:32 Sodium 135 Potassium 3.2 L Chloride 100 Carbon Dioxide 28 BUN 15 Creatinine 1.1 Glucose 163 H Calcium 8.6 Liver Function 03/16/24 Range/Units 22:32 Total Bilirubin 1.0 (0.1-1.5) mg/dL Direct Bilirubin 0.5 (0.0-0.5) mg/dL AST 31 (12-35) U/L ALT 21 (4-50) U/L Alkaline Phosphatase 82 (40-150) U/L Albumin 4.3 (3.3-5.0) g/dL Assessment and Plan Assessment and plan (1) Acute appendicitis: Status: Acute (2) Hypokalemia: Status: Acute (3) Hypothyroidism: Status: Acute (4) Tobacco dependence syndrome: Status: Acute (5) Obstructive sleep apnea treated with continuous positive airway pressure (CPAP): Status: Acute (6) Morbid obesity: Status: Acute (7) Hypertension: Status: Acute (8) Hyperlipidemia: Status: Acute Plan Abdomen and pelvis personally reviewed agree with official read:severely inflamed, acute appendicitis in the right lower quadrant. No evidence for perforation or abscess formation. EKG personally reviewed: Sinus rhythm with QT440 Acute appendicitis ER discussed with general surgery plan for OR in a.m. N.p.o. Started on Zosyn in the ER which will be continued IV fluids, antiemetics IV morphine as needed LEANNE Continue CPAP Hypertension Continue carvedilol Holding diuretic and losartan for the day of surgery Hyperlipidemia Continue statin Hypothyroidism Continue levothyroxine when verified Full code Prior to admission home medications that were felt to be needed immediately have been ordered. The remainder of the home medications will await pharmacy reconciliation and will be ordered by the attending provider in the a.m. Telehealth Visit: Today's History and Physical is provided via interactive telehealth by Dr. John Perkins MD. Patient is located at [facility]. Provider is located at [facility]. Nursing staff assisted with the patient's exam. The visit being done today meets criteria for a telehealth visit and the patient or patients parent/guardian is aware the visit is a telehealth visit. Start Time: 050 End Time: 056 Medical Complexity: High Telehealth: Statement Statement Telehealth Visit: Today's History and Physical is provided via interactive telehealth by John Perkins MD.? Patient is located at [facility].? Provider is located at [facility].? Nursing staff assisted with the patient's exam. The visit being done today meets criteria for a telehealth visit and the patient or patient?s parent/guardian is aware the visit is a telehealth visit. Camera Start Time: 00:50 Camera End Time: 00:55
--- OUTSIDE RECORDS SUMMARY | 2024-03-17 01:26 | XMS_ITS | Clinical Summary ---
Author Organization [email or web address] Address [place], [place] [address] Care Team Providers Care Assembler Latches And Springs Name Role Phone Pcp, No Primary Care [...] age to complete this topic Care Teams Assembler Latches And Springs Relationship Specialty Start Date End Date Pcp, No . PCP - General 11/15/18
--- OUTSIDE RECORDS SUMMARY | 2024-03-17 01:27 | XMS_ITS | Referral Summary ---
Author Organization [facility] Address [address] [place] [address] Care Team Providers Care Computer Applications Developer Name Role Phone Damien Terry MD Primary Care Provider [phone] Allergies No known active allergies Social History [...] of Treatment Not on file Care Teams Computer Applications Developer Relationship Specialty Start Date End Date Damien Terry MD PCP - General Family Practice 11/28/19
--- OUTSIDE RECORDS SUMMARY | 2024-03-17 01:27 | XMS_ITS | Clinical Summary ---
Author Organization [facility] Address Formerly [facility] [facility] [place] [address] Care Team Providers Care Ld Teacher Name Role Phone Damien Terry MD Primary Care Provider [phone] Allergies No known active allergies Social History [...] of Treatment Not on file Care Teams Ld Teacher Relationship Specialty Start Date End Date Damien Terry MD PCP - General Family Practice 11/28/19
[2024-03-17] MEDS: LACTATED RINGERS 1000 ML 1,000 ML 75 ML IV ×2 (01:38→18:36)
[2024-03-17] MEDS: SODIUM CHLORIDE 0.9 % (FLUSH) 10 ML SYRINGE 5 ML IVF ×6 (01:52→23:53)
[2024-03-17] MEDS: MORPHINE 4 MG/ML INJ IVP ×3 (01:52→06:34)
[2024-03-17] MEDS: POTASSIUM CHLORIDE 10 MEQ/100 ML PIGGYBACK 100 MEQ IVPB ×4 (02:14→05:20)
[2024-03-17 02:43] LABS: Appearance Urine Clear (Clear); Bilirubin Urine Negative (Negative); Blood Urine Negative (Negative); Color Urine Yellow (Yellow); Glucose Urine Negative (Negative); Ketones Urine Negative (Negative); Leukocyte Esterase Urine Negative (Negative); Nitrite Urine Negative (Negative); Protein Urine Trace (Negative); Urobilinogen Urine 0.2 (0.2-1.0)
[2024-03-17 02:45] LABS: RBC Urine 0-2 (0-2); WBC Urine 0-2 (0-5)
--- NOTE | 2024-03-17 05:44 | PC.NURSE ---
Pt arrived to floor approx 0030, pain to RLQ, relief with prn morphine. did not sleep well during night, was woke up frequently due to cares/med administration. ind in room. afebrile, denies chest pain, sob, or headache.
[2024-03-17] MEDS: PIPERACILLIN/TAZOBACTAM 3.375 GM in 0.9 % SODIUM CHLORIDE Mini-bag 100 ML IVPB ×4 (06:26→23:53)
[2024-03-17] MEDS: 0.9 % SODIUM CHLORIDE 250 ml IV ×2 (06:27→17:52)
[2024-03-17 07:18] LABS: Magnesium* 2.2 mg/dL (1.5-2.6)
--- NOTE | 2024-03-17 08:04 | P.GSCN_ITS ---
History of Present Illness Consult details Date Seen: 03/17/24 Consult date: 03/17/24 Narrative: Patient presented to the emergency department last night with right-sided abdominal pain. He says that on Thursday night he started to have some cramping and diarrhea. When he woke up on Thursday he had pain in his belly that radiated to the right side. The pain did not go away and instead got worse, prompting him to come into the emergency department. Subjective fevers and chills. He has never had pain like this before. He has never had abdominal surgery before. 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 He lives in [place]. He smokes a pack and half of cigarettes a day. Denies alcohol use. No reported history of diabetes. Review of Systems Status of ROS: Reports: 10 or more systems reviewed and unremarkable except as noted in History and below [facility] Surgical History Status post tonsillectomy and adenoidectomy (1973) ?Z90.89 - Acquired absence of other organs (ICD-10) History of open reduction and internal fixation (ORIF) procedure (2015) ?Z98.890 - Other specified postprocedural states (ICD-10) Social History What is your current living situation?: I presently have a place to live Problems where you live: no known problems Problems where you live details: none In the past 12 months, utilities in danger of being shut off: no In past 12 months, lack of transportation kept you from medical appts, meetings, work, or getting things needed for daily living: no In the past 12 mos, have been you worried that your food would run out before you had money to buy more?: never true In the past 12 mos, the food you bought just didn't last and you didn't have money to buy more?: never true Smoking Status: Current every day smoker What tobacco products do you use: cigarettes Smoking packs per day: 1.5 Smoking cigarettes per day: 30.0 Second hand tobacco smoke exposure: Yes How often do you have a drink containing alcohol: 2-4 times a month How often do you have six or more drinks on one occasion: Never AUDIT-C Alcohol total score: 2 Non-prescribed substance use: denies use How often does anyone, including family, friends and others, physically hurt you : never How often does anyone, including family, friends and others, insult or talk down to you: never How often does anyone, including family, friends and others, threaten you with harm: never How often does anyone, including family, friends and others, scream or curse at you: never Little interest or pleasure in doing things: not at all Feeling down, depressed, or hopeless: not at all Meds Home Medications and Allergies Home Medications ?Medication ?Instructions ?Recorded ?Confirmed ?Type melatonin 3 mg-theanine 40 mg tab PO .QHS 04/09/22 05/28/23 History tablet multivitamin 1 tab PO QDAY 04/09/22 03/16/24 History oxygen-air delivery systems 04/09/22 05/28/23 History omeprazole 20 mg capsule,delayed 40 mg PO DAILY 12/18/22 03/16/24 History release biotin 10,000 mcg capsule 10,000 mcg PO .QD 05/28/23 05/28/23 History levothyroxine 25 mcg tablet 75 mcg PO QDAY 03/16/24 03/16/24 History Allergies Allergy/AdvReac Type Severity Reaction Status Date / Time Cat hair extract Allergy Severe itching Uncoded 05/28/23 07:12 and swelling Bee venom Allergy Intermediate itching Uncoded 05/28/23 07:12 and swelling Exam Narrative: Exam Narrative: General: Alert and oriented, no acute distress Respiratory: Equal breath rise bilaterally, maintained on room air CV: Regular rhythm and rate Abdomen: Obese abdomen soft, tender to palpation right lower quadrant with guarding. No rebound. Const: Vital Signs, click to edit/add: Vital Signs - 24 hr 03/16/24 22:24 03/16/24 23:00 03/17/24 00:41 Temperature 98.3 F 98.5 F Pulse Rate [Pulse Oximeter] 101 H 94 Respiratory Rate 20 20 Blood Pressure [Le ft Arm] 143/77 H Blood Pressure [Ri ght Upper Arm] 150/78 H Pulse Oximetry 96 94 92 Oxygen Delivery Me thod Room Air Room Air 03/17/24 00:41 03/17/24 00:41 03/17/24 02:38 Temperature 98.3 F 98.9 F Pulse Rate [Pulse Oximeter] 89 92 Respiratory Rate 20 20 20 Blood Pressure [Le ft Arm] 122/70 Blood Pressure [Ri ght Upper Arm] 135/74 Pulse Oximetry 94 94 92 Oxygen Delivery Me thod Room Air Room Air Room Air 03/17/24 07:00 Temperature 98.9 F Pulse Rate [Pulse Oximeter] 90 Respiratory Rate 16 Blood Pressure [Le ft Arm] 124/72 Blood Pressure [Ri ght Upper Arm] Pulse Oximetry 92 Oxygen Delivery Me thod Room Air Results Labs Labs: Abnormal lab results 03/16/24 03/16/24 03/17/24 Range/Units 22:32 23:10 02:15 WBC 13.53 H (4.50-11.00) K/uL Neut % (Auto) 78.6 H (42.0-72.0) % Lymph % (Auto) 11.7 L (20-44) % Neut # (Auto) 10.60 H (1.7-7.0) K/uL [place] # (Auto) 1.10 H (0.00-0.90) K/UL Potassium 3.2 L (3.6-5.1) mmol/L Glucose 163 H (60-115) mg/dL C-Reactive Protein 12.5 H (0.5-1.0) mg/dL Urine Protein Trace A (Negative) Diabetes panel 03/16/24 Range/Units 22:32 Sodium 135 (135-149) mmol/L Potassium 3.2 L (3.6-5.1) mmol/L Chloride 100 (96-114) mmol/L Carbon Dioxide 28 (20-32) mmol/L BUN 15 (7-30) mg/dL Creatinine 1.1 (0.5-1.5) mg/dL Glucose 163 H (60-115) mg/dL Calcium 8.6 (8.4-10.6) mg/dL AST 31 (12-35) U/L ALT 21 (4-50) U/L Alkaline Phosphatase 82 (40-150) U/L Total Protein 7.1 (6.0-8.3) g/dL Albumin 4.3 (3.3-5.0) g/dL Calcium panel 03/16/24 Range/Units 22:32 Calcium 8.6 (8.4-10.6) mg/dL Albumin 4.3 (3.3-5.0) g/dL Pituitary panel 03/16/24 Range/Units 22:32 Sodium 135 (135-149) mmol/L Potassium 3.2 L (3.6-5.1) mmol/L Chloride 100 (96-114) mmol/L Carbon Dioxide 28 (20-32) mmol/L BUN 15 (7-30) mg/dL Creatinine 1.1 (0.5-1.5) mg/dL Glucose 163 H (60-115) mg/dL Calcium 8.6 (8.4-10.6) mg/dL Adrenal panel 03/16/24 Range/Units 22:32 Sodium 135 (135-149) mmol/L Potassium 3.2 L (3.6-5.1) mmol/L Chloride 100 (96-114) mmol/L Carbon Dioxide 28 (20-32) mmol/L BUN 15 (7-30) mg/dL Creatinine 1.1 (0.5-1.5) mg/dL Glucose 163 H (60-115) mg/dL Calcium 8.6 (8.4-10.6) mg/dL Total Bilirubin 1.0 (0.1-1.5) mg/dL AST 31 (12-35) U/L ALT 21 (4-50) U/L Alkaline Phosphatase 82 (40-150) U/L Total Protein 7.1 (6.0-8.3) g/dL Albumin 4.3 (3.3-5.0) g/dL All other labs normal. Imaging Abdomen CT scan report/results: report reviewed and image reviewed Progress Note:A&P Assessment and plan (1) Acute appendicitis: Status: Acute Plan The patient presented with a history, exam and imaging findings consistent with acute appendicitis. I discussed the treatment options with the patient including non-surgical and surgical options. I recommended laparoscopic appendectomy. The risks of surgery were reviewed with the patient including the risks of bleeding, post-operative wound or intra-abdominal infection, injury to abdominal structures and possible conversion to an open operation. We also discussed anesthetic complications including TX, stroke, respiratory failure and blood clots. The patient voiced an understanding of our conversation, had the opportunity to ask questions, agreed to accept the risks of surgery and asked that we proceed with surgery. -OR for laparoscopic appendectomy
[2024-03-17] MEDS: LACTATED RINGERS 1000 ML 1,000 ML 125 ML IV ×2 (08:07→10:45)
[2024-03-17] MEDS: BUPIVACAINE 0.25% 30 ML INJECTION (08:50)
--- NOTE | 2024-03-17 12:32 | PM.GSPRC ---
Operative Note Date of procedure: 03/17/24 Pre-op diagnosis: Acute appendicitis Post-op diagnosis: Same, perforated with stool contamination Type of Procedure: Laparoscopic converted to open appendectomy Indications: Patient is a 53-year-old male who presented to the emergency department with a 3 day history of abdominal pain. Workup was obtained with CT scan showing significant surrounding inflammatory changes of the appendix, consistent with acute appendicitis. No obvious perforation or abscess identified. Risks and benefits of operative intervention were discussed at length with the patient. Risks included but was not limited to: Bleeding, infection, risk of damage to surrounding structures, possible need for additional procedures, possible need to convert to an open operation and postoperative complications such as pneumonia, pulmonary emboli or [place]. All questions and concerns were addressed with the patient agreeing to proceed. Procedure Description: After discussing the risks and benefits of the procedure, the patient signed informed consent.? The operative site was marked and the patient was brought to the operating room and placed on the operating table in supine position.? Care was taken to pad the patient's pressure points.?? The patient was then intubated by anesthesia.?? The operative site was then prepped and draped in the usual sterile fashion.? A time-out was then performed. Entrance to the abdomen was obtained via a 5 mm optical trocar in the left upper quadrant. The abdomen was insufflated and briefly surveyed for any signs of injury. There were none. A 12 mm port was placed lateral to the umbilicus as well as a 5 mm port in the left lower quadrant under direct vision. The patient was then placed in Trendelenburg position with the right side up. The small bowel was gently moved out of the way and the tip of the appendix was identified retrocecal. There was a thick inflammatory rind present. The body of the appendix was difficult to dissect out secondary to inflammation. During dissection 2 stool balls were identified within the inflammatory rind. There was an identified large perforation of the appendix, close to the base of the cecum with near transection of the body. Using the LigaSure device the mesentery of the appendix was ligated, staying close to the appendix. The tissue on the appendix was very friable and necrotic. Dissection was made difficult secondary to these tissue changes, as well as patient's abdominal obesity. An additional 5 mm port was placed in the right upper quadrant to help assist with retraction of intra-abdominal fat. I continued with careful dissection around the base of the cecum. During this portion of the procedure the body of the appendix tore at the previous perforation site. This made dissection of the base difficult to proceed laparoscopically. The decision was then made to convert to an open operation. A midline incision around the umbilicus was made with a scalpel. Dissection was carried through subcutaneous tissue with cautery. The fascia was incised in the midline along the incision length. There was evidence of a small umbilical hernia with incarcerated preperitoneal fat. The peritoneum was then incised and the abdomen entered. Patient was placed right-side up and Trendelenburg. The small bowel was packed into the left upper quadrant. Using large Ramachandran retractors the right side of the colon was identified. Long Babcocks were used to grasp the cecum and bring into the operative field. The base of the appendix was identified. This was further dissect out with blunt dissection and cautery. Using the previously opened laparoscopic stapler a 60 mm bowel load was placed at the base of the appendix and on a portion of the cecum. An additional 30 mm bowel load was needed to transect the specimen completely. The staple line was visualized, healthy and intact. The specimen was surveyed on the back table, with confirmed ruptured base of the appendix and small portion of cecum. All portions of the necrotic, perforated appendix were accounted for, 3 in total sent as 1 specimen. The 2 stool balls were removed from the right lower quadrant. The abdomen was copiously irrigated with warm saline. Hemostasis was excellent at the end of the procedure. A 15 [place] VICKI round Vinnie drain was chosen to place in the right lower quadrant. It was brought out through a separate incision in the right lower quadrant and secured to the skin with 2-0 nylon suture. The 12 mm port site was closed on the anterior aspect of the intra-abdominal wall with 0 Vicryl suture. The midline incision was closed with 2 running looped 0 Maxon suture. The midline incision was irrigated with warm saline. The incision was closed with natali. The port sites were closed with 4-0 Monocryl suture. Steri-Strips were placed over the port sites. The midline incision had 4 x 4, ABD and Medipore tape dressing. Instrument sponge and needle counts were correct at the end of the case. The patient was then woken and transported to the PACU in stable condition. Findings: Perforated appendix, stool contamination. Laparoscopic converted to open procedure. Modifier 22 secondary to patient's BMI greater than 45, necrosis of the appendix body and perforation. Anesthesia: GETA Surgeon: Ingrid Hernandez MD Estimated blood loss (mL): 25 Specimen: Appendix Condition: stable Disposition: PACU
--- NOTE | 2024-03-17 13:19 | W.ANESCHARGE ---
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
--- NOTE | 2024-03-17 13:21 | P.NB_ITS ---
Nerve Block Nerve Block Time Seen by Provider: 12:55 Date Seen: 03/17/24 Type of block requested by surgeon for post-operative analgesia: TAP Side: bilateral Time out performed: Yes Verification of patient name: Yes Verification of date of : Yes Site marking: not applicable Name of person performing procedure: Aly Continuous monitoring Was continuous monitoring of O2 sat, B/P, phototypesetting equipment monitor, recorded every 15 minutes?: Yes Procedure Checklist: sterile prep and needles Ultrasound guided. Images saved: Yes Medications given in 5ml increments after negative aspiration: Marcaine %: 0.25 mL: 30 Needle gauge: 20 and Exparel mL: 10 Patient tolerated procedure well: Yes Block Charges Block Charge (with Pro Fee): TAP Bilateral Use of Ultrasound Machine for Block: Yes- US Guidance/pain block
--- NOTE | 2024-03-17 13:44 | SUR.PHASEI ---
Patient meets discharge criteria from PACU
[2024-03-17] MEDS: HYDROmorphone 0.5 mg/0.5 ml inj IVP ×4 (17:52→23:53)
--- NOTE | 2024-03-17 18:26 | PC.NURSE ---
Pt arrived from surgery at 1351. Pt came back from surgery on BIPAP. Per RT Pt?s oxygen saturations are to be 86%-94%. When Pt is awake BIPAP may be off but should be worn at all times while Pt sleeps. Pt tolerating well. Pt had pandey catheter inserted in OR. Pt has VICKI drain in place. Pt has 3 lap sites and a midline incision. Pt?s midline incision dressing does have small amounts of drainage; which was outlined. Pt is wearing abdominal binder. Pt blood glucose taken at 1425 results 187, reported to MD. Pt had complaints of pain ranging 0-10; see EMAR for intervention. Pt slept most of shift after arriving back from surgery.?
--- NOTE | 2024-03-17 19:29 | P.IMPN_ITS ---
Progress Note: A&P Assessment and plan (1) Acute appendicitis: Problem details: - Status post open appendectomy by Dr. Hernandez 03/17/24 - cares per Dr. Hernandez. Status: Acute (2) Hypokalemia: Problem details: - has history of hypokalemia, likely due to use of hydrochlorothiazide - he was given several bags of IV potassium overnight. Recheck potassium this afternoon. Status: Acute (3) Hypothyroidism: Problem details: - patient's doses unclear. Will start him on 25 mcg IV levothyroxine since I am not sure if he will be able to absorb p.o. at this time. I have asked pharmacy to clarify his dose as he becomes more alert. I did do some chart review and saw that the last time he saw his primary care provider here about a year ago, his dose was reduced to 25 mcg daily and he was supposed to return in 3 months for repeat TSH, but it appears that he did not do so and it is not clear if he doctored elsewhere after that. Status: Chronic (4) Obstructive sleep apnea treated with continuous positive airway pressure (CPAP): Problem details: Use BiPAP for hypopnea in the postop setting and monitor. May be able to transition to CPAP tomorrow as he becomes more alert. Status: Chronic (5) Morbid obesity: Status: Chronic (6) Hypertension: Problem details: Continue Coreg, but I am not sure if he will absorb it orally given his recent abdominal surgery. I have also ordered p.r.n. labetalol. Status: Chronic (7) Hyperlipidemia: Problem details: Continue statin Status: Chronic (8) Hypogonadism in male: Problem details: Patient has not been taking testosterone lately because he ran out. Will hold off on this for now and clarify as he becomes more alert. Status: Chronic Subjective Time Seen by Provider: 15:30 Date Seen: 03/17/24 Interval history: Phil is postop from a converted appendectomy due to stool in the abdomen. He has been on BiPAP since extubation due to hypopnea. He is sleepy, but arousable and able to answer some questions while on BiPAP. He denies feeling short of breath, denies chest pain, endorses abdominal pain. Exam Narrative: Exam Narrative: General: No acute distress. Sleeping, arousable, oriented x3. No pallor. No jaundice. Cardiovascular: Regular rate and rhythm. No murmurs, gallops, or rubs. Respiratory: Clear to auscultation bilaterally. No wheezes or crackles. Abdomen: Protuberant, abdominal binder in place. This was removed for my exam. Bandages have some serosanguineous fluid which was marked with a pen. J peg draining serosanguineous fluid. Const: Vital Signs, click to edit/add: Vital Signs - 24 hr 03/16/24 22:24 03/16/24 23:00 03/17/24 00:41 Temperature 98.3 F 98.5 F Pulse Rate Pulse Rate [Pulse Oximeter] 101 H 94 Respiratory Rate 20 20 Blood Pressure Blood Pressure [Le ft Arm] 143/77 H Blood Pressure [Ri ght Upper Arm] 150/78 H Pulse Oximetry 96 94 92 Oxygen Delivery Me thod Room Air [facility] 03/17/24 00:41 03/17/24 00:41 03/17/24 02:38 Temperature 98.3 F 98.9 F Pulse Rate Pulse Rate [Pulse Oximeter] 89 92 Respiratory Rate 20 20 20 Blood Pressure Blood Pressure [Le ft Arm] 122/70 Blood Pressure [Ri ght Upper Arm] 135/74 Pulse Oximetry 94 94 92 Oxygen Delivery Me thod Room Air Room Air Room Air Fraction of Inspir ed Oxygen 03/17/24 07:00 03/17/24 07:00 03/17/24 13:07 Temperature 98.9 F 97.7 F Pulse Rate 95 Pulse Rate [Pulse Oximeter] 90 Respiratory Rate 16 16 16 Blood Pressure 128/80 Blood Pressure [Le ft Arm] 124/72 Blood Pressure [Ri ght Upper Arm] Pulse Oximetry 92 90 Oxygen Delivery Me thod Room Air BiPAP [facility] 35 03/17/24 13:10 03/17/24 13:15 03/17/24 13:20 Temperature Pulse Rate 93 93 91 Pulse Rate [Pulse Oximeter] Respiratory Rate 20 24 24 Blood Pressure 137/79 139/82 137/79 Blood Pressure [Le ft Arm] Blood Pressure [Ri ght Upper Arm] Pulse Oximetry 90 93 95 Oxygen Delivery Me thod BiPAP Fraction of Inspir ed Oxygen 25 03/17/24 13:25 03/17/24 13:30 03/17/24 13:35 Temperature 97.9 F Pulse Rate 91 90 94 Pulse Rate [Pulse Oximeter] Respiratory Rate 26 H 26 H 26 H Blood Pressure 136/80 137/79 132/86 Blood Pressure [Le ft Arm] Blood Pressure [Ri ght Upper Arm] Pulse Oximetry 94 91 92 Oxygen Delivery Me thod BiPAP Fraction of Inspir ed Oxygen 25 03/17/24 13:40 03/17/24 13:51 03/17/24 14:00 Temperature 98.1 F 98.0 F Pulse Rate 94 87 90 Pulse Rate [Pulse Oximeter] Respiratory Rate 26 H 29 H 28 H Blood Pressure 137/81 131/75 139/74 Blood Pressure [Le ft Arm] Blood Pressure [Ri ght Upper Arm] Pulse Oximetry 90 91 88 Oxygen Delivery Me thod BiPAP BiPAP BiPAP Fraction of Inspir ed Oxygen 25 25 25 03/17/24 14:15 03/17/24 14:30 03/17/24 14:36 Temperature 97.6 F 98.0 F Pulse Rate 89 92 87 Pulse Rate [Pulse Oximeter] Respiratory Rate 31 H 27 H Blood Pressure 131/77 132/75 Blood Pressure [Le ft Arm] Blood Pressure [Ri ght Upper Arm] Pulse Oximetry 89 90 Oxygen Delivery Me thod BiPAP BiPAP Fraction of Inspir ed Oxygen 25 25 03/17/24 14:45 03/17/24 15:00 03/17/24 15:00 Temperature 97.9 F 97.5 F L Pulse Rate 87 88 Pulse Rate [Pulse Oximeter] Respiratory Rate 29 H 27 H 28 H Blood Pressure 126/73 164/83 H Blood Pressure [Le ft Arm] Blood Pressure [Ri ght Upper Arm] Pulse Oximetry 90 90 92 Oxygen Delivery Me thod BiPAP BiPAP BiPAP Fraction of Inspir ed Oxygen 25 25 25 03/17/24 15:32 03/17/24 15:47 03/17/24 16:00 Temperature 98.1 F 98.1 F Pulse Rate 87 89 Pulse Rate [Pulse Oximeter] Respiratory Rate 29 H 29 H Blood Pressure 131/75 128/76 Blood Pressure [Le ft Arm] Blood Pressure [Ri ght Upper Arm] Pulse Oximetry 91 92 Oxygen Delivery Me thod BiPAP BiPAP Fraction of Inspir ed Oxygen 25 0.25 25 03/17/24 17:00 03/17/24 17:17 03/17/24 18:00 Temperature 97.6 F 98.2 F Pulse Rate 92 97 Pulse Rate [Pulse Oximeter] Respiratory Rate 30 H 31 H 28 H Blood Pressure 138/75 130/76 Blood Pressure [Le ft Arm] Blood Pressure [Ri ght Upper Arm] Pulse Oximetry 91 91 Oxygen Delivery Me thod BiPAP BiPAP Fraction of Inspir ed Oxygen 25 25 03/17/24 18:56 Temperature 98.2 F Pulse Rate 97 Pulse Rate [Pulse Oximeter] Respiratory Rate 32 H Blood Pressure 128/77 Blood Pressure [Le ft Arm] Blood Pressure [Ri ght Upper Arm] Pulse Oximetry 90 Oxygen Delivery Me thod BiPAP Fraction of Inspir ed Oxygen 25 Labs Labs: Laboratory Results - last 24 hr 03/16/24 03/16/24 03/17/24 22:32 23:10 02:15 WBC 13.53 H RBC 4.84 Hgb 14.5 Hct 44.2 MCV 91 MCH 30 MCHC 33 RDW Coeff of Margo 13.9 Plt Count 188 Neut % (Auto) 78.6 H Lymph % (Auto) 11.7 L [place] % (Auto) 7.8 Eos % (Auto) 1.3 Baso % (Auto) 0.2 Neut # (Auto) 10.60 H Lymph # (Auto) 1.60 [place] # (Auto) 1.10 H Eos # (Auto) 0.20 Baso # (Auto) 0.00 Abs Immat Gran (auto) 0.10 Imm/Tot Granulo (auto) 0.4 Sodium 135 Potassium 3.2 L Chloride 100 Carbon Dioxide 28 Anion Gap 7 BUN 15 Creatinine 1.1 Estimated Creat Clear 90.30 Estimated GFR 80 Glucose 163 H Calcium 8.6 Magnesium Total Bilirubin 1.0 Direct Bilirubin 0.5 AST 31 ALT 21 Alkaline Phosphatase 82 C-Reactive Protein 12.5 H Total Protein 7.1 Albumin 4.3 Amylase 58 Urine Color Yellow Urine Appearance Clear Urine pH 6.0 Ur Specific Frederica 1.010 Urine Protein Trace A Urine Glucose (UA) Negative Urine Ketones Negative Urine Blood Negative Urine Nitrite Negative Urine Bilirubin Negative Urine Urobilinogen 0.2 Ur Leukocyte Esterase Negative Urine RBC 0-2 Urine WBC 0-2 Ur Squamous Epith Cells None Urine Bacteria None 03/17/24 06:09 WBC RBC Hgb Hct MCV MCH MCHC RDW Coeff of Margo Plt Count Neut % (Auto) Lymph % (Auto) [place] % (Auto) Eos % (Auto) Baso % (Auto) Neut # (Auto) Lymph # (Auto) [place] # (Auto) Eos # (Auto) Baso # (Auto) Abs Immat Gran (auto) Imm/Tot Granulo (auto) Sodium Potassium Chloride Carbon Dioxide Anion Gap BUN Creatinine Estimated Creat Clear Estimated GFR Glucose Calcium Magnesium 2.2 Total Bilirubin Direct Bilirubin AST ALT Alkaline Phosphatase C-Reactive Protein Total Protein Albumin Amylase Urine Color Urine Appearance Urine pH Ur Specific Frederica Urine Protein Urine Glucose (UA) Urine Ketones Urine Blood Urine Nitrite Urine Bilirubin Urine Urobilinogen Ur Leukocyte Esterase Urine RBC Urine WBC Ur Squamous Epith Cells Urine Bacteria
[2024-03-17 20:06] LABS: Potassium* 3.7 mmol/L (3.6-5.1)
[2024-03-17] MEDS: carvediloL 6.25 MG TABLET 3.125 MG PO (21:08)
[2024-03-17] MEDS: SIMVASTATIN 40 MG TABLET PO (21:08)
[2024-03-17] MEDS: HYDROCODONE-ACETAMIN 5-325 MG 1 TAB PO (21:08)
[2024-03-18] VITALS (15 sets, daily range): BP systolic 104–144; BP diastolic 64–85; PULSE 76–91; RESP 16–22; TEMP 35.9–36.7; O2SAT 88–94
[2024-03-18] MEDS: HYDROCODONE-ACETAMIN 5-325 MG 1 TAB PO ×4 (01:52→18:55)
[2024-03-18] MEDS: HYDROmorphone 0.5 mg/0.5 ml inj IVP ×4 (02:08→14:07)
[2024-03-18] MEDS: SODIUM CHLORIDE 0.9 % (FLUSH) 10 ML SYRINGE 5 ML IVF ×2 (02:09→04:13)
[2024-03-18] MEDS: PIPERACILLIN/TAZOBACTAM 3.375 GM in 0.9 % SODIUM CHLORIDE Mini-bag 100 ML IVPB ×3 (05:49→17:42)
[2024-03-18] MEDS: OMEPRAZOLE 20 MG CAPSULE DR 40 MG PO (06:16)
[2024-03-18 06:28] LABS: Basophils Percent Auto 0.1 % (0.0-3.0); Hematocrit 42.8 % (37.0-53.0); Hemoglobin* 13.9 gm/dL (13.5-17.5); Immature Granulocytes Pct Auto 0.1 %; Mean Corpuscular HGB Conc 33 gm/dL (32-36); Mean Corpuscular Hemoglobin 30 pg (26-34); Mean Corpuscular Volume 92 fL (80-100); Monocytes Percent Auto 8.9 % (0.0-11.0); Neutrophils Percent Auto 84.9 % (42.0-72.0); Platelet Count* 186 K/uL (140-440); RDW Coefficient of Variation % 14.2 % (11.5-15.5); Red Blood Count 4.63 m/uL (4.30-5.90); White Blood Count* 16.26 K/uL (4.50-11.00)
[2024-03-18 06:36] LABS: Slide Review Reflex No
--- NOTE | 2024-03-18 06:39 | PC.NURSE ---
[id number] Pt slept on and off during night, using BiPAP while sleeping to maintain sats >86%, no change in setting required. rating RLQ and midline incisional pain 4-10 during shift, prn pain medication used thru out night, relief while resting, increase in pain with activity, deep breathing/coughing. abd binder used during shift with ice to abdomen. pt ambulating with SBA, up to recliner early this morning. drainage on dressing to abd outlined, some migration of new drainage noted. fausto drain decreased in output as night progressed. tolerating clear diet, no N/V.
[2024-03-18 06:47] LABS: Chloride* 99 mmol/L (96-114); Potassium* 3.7 mmol/L (3.6-5.1); Sodium* 133 mmol/L (135-149)
[2024-03-18 06:50] LABS: Anion Gap 6 mEq/L (7-15); Blood Urea Nitrogen* 23 mg/dL (7-30); Carbon Dioxide* 28 mmol/L (20-32); Creatinine* 1.4 mg/dL (0.5-1.5); Est. Creatinine Clearance* 70.95; Estimated Glomerular Filt Rate 60 ml/min; Glucose* 156 mg/dL (60-115)
[2024-03-18] MEDS: LEVOTHYROXINE 25 MCG TABLET PO (10:28)
[2024-03-18] MEDS: carvediloL 6.25 MG TABLET 3.125 MG PO ×2 (10:28→22:20)
[2024-03-18] MEDS: POTASSIUM CHLORIDE 10 MEQ CAPSULE ER PO (10:33)
[2024-03-18] MEDS: hydroCHLOROthiazide 25 MG TABLET PO (10:33)
[2024-03-18] MEDS: LOSARTAN POTASSIUM 50 MG TABLET 100 MG PO (10:36)
[2024-03-18] MEDS: LACTATED RINGERS 1000 ML 1,000 ML 75 ML IV (10:37)
--- NOTE | 2024-03-18 11:05 | PM.GSPN ---
Subjective Subjective Date Seen: 03/18/24 Interval history: Doing okay this morning. He is having a lot of pain in his right lower abdomen and midline incision. The pain meds help, but do not seem to last very long per patient. Denies any nausea. Not yet feeling hungry. Has been having some cramping gas pain, no passing of gas. Was able to get up in a chair early this morning. Exam Narrative: Exam Narrative: General: Alert and oriented, no acute distress Respiratory: Coarse breath sounds bilaterally, equal breath rise. On room air oxygenating high 80s CV: Regular rhythm and rate Abdomen: Obese abdomen, tender over incisions. Outer dressing removed from midline with natali in place. Steri-Strips over laparoscopic incision sites. No concern for infection. Right lower quadrant drain with minimal serous output. Const: Vital Signs, click to edit/add: Vital Signs - 24 hr 03/17/24 13:07 03/17/24 13:10 03/17/24 13:15 Temperature 97.7 F Pulse Rate 95 93 93 Pulse Rate [Pulse Oximeter] Respiratory Rate 16 20 24 Blood Pressure 128/80 137/79 139/82 Blood Pressure [Ri ght Arm] Pulse Oximetry 90 90 93 Oxygen Delivery Me thod BiPAP Fraction of Inspir ed Oxygen 35 03/17/24 13:20 03/17/24 13:25 03/17/24 13:30 Temperature Pulse Rate 91 91 90 Pulse Rate [Pulse Oximeter] Respiratory Rate 24 26 H 26 H Blood Pressure 137/79 136/80 137/79 Blood Pressure [Ri ght Arm] Pulse Oximetry 95 94 91 Oxygen Delivery Me thod BiPAP BiPAP Fraction of Inspir ed Oxygen 25 25 03/17/24 13:35 03/17/24 13:40 03/17/24 13:51 Temperature 97.9 F 98.1 F Pulse Rate 94 94 87 Pulse Rate [Pulse Oximeter] Respiratory Rate 26 H 26 H 29 H Blood Pressure 132/86 137/81 131/75 Blood Pressure [Ri ght Arm] Pulse Oximetry 92 90 91 Oxygen Delivery Me thod BiPAP BiPAP Fraction of Inspir ed Oxygen 25 25 03/17/24 14:00 03/17/24 14:15 03/17/24 14:30 Temperature 98.0 F 97.6 F 98.0 F Pulse Rate 90 89 92 Pulse Rate [Pulse Oximeter] Respiratory Rate 28 H 31 H 27 H Blood Pressure 139/74 131/77 132/75 Blood Pressure [Ri ght Arm] Pulse Oximetry 88 89 90 Oxygen Delivery Me thod BiPAP BiPAP BiPAP Fraction of Inspir ed Oxygen 25 25 25 03/17/24 14:36 03/17/24 14:45 03/17/24 15:00 Temperature 97.9 F Pulse Rate 87 87 Pulse Rate [Pulse Oximeter] Respiratory Rate 29 H 27 H Blood Pressure 126/73 Blood Pressure [Ri ght Arm] Pulse Oximetry 90 90 Oxygen Delivery Me thod BiPAP BiPAP Fraction of Inspir ed Oxygen 25 25 03/17/24 15:00 03/17/24 15:32 03/17/24 15:47 Temperature 97.5 F L 98.1 F Pulse Rate 88 87 Pulse Rate [Pulse Oximeter] Respiratory Rate 28 H 29 H Blood Pressure 164/83 H 131/75 Blood Pressure [Ri ght Arm] Pulse Oximetry 92 91 Oxygen Delivery Me thod BiPAP BiPAP Fraction of Inspir ed Oxygen 25 25 0.25 03/17/24 16:00 03/17/24 17:00 03/17/24 17:17 Temperature 98.1 F 97.6 F Pulse Rate 89 92 Pulse Rate [Pulse Oximeter] Respiratory Rate 29 H 30 H 31 H Blood Pressure 128/76 138/75 Blood Pressure [Ri ght Arm] Pulse Oximetry 92 91 Oxygen Delivery Me thod BiPAP BiPAP Fraction of Inspir ed Oxygen 25 25 03/17/24 18:00 03/17/24 18:56 03/17/24 19:00 Temperature 98.2 F 98.2 F Pulse Rate 97 97 97 Pulse Rate [Pulse Oximeter] Respiratory Rate 28 H 32 H Blood Pressure 130/76 128/77 Blood Pressure [Ri ght Arm] Pulse Oximetry 91 90 Oxygen Delivery Me thod BiPAP BiPAP Fraction of Inspir ed Oxygen 25 25 03/17/24 20:00 03/17/24 21:37 03/17/24 21:37 Temperature 98.2 F 98.6 F Pulse Rate Pulse Rate [Pulse Oximeter] 96 99 Respiratory Rate 29 H 28 H 28 H Blood Pressure Blood Pressure [Ri ght Arm] 117/83 110/67 Pulse Oximetry 91 87 L Oxygen Delivery Me thod BiPAP BiPAP Fraction of Inspir ed Oxygen 25 03/17/24 23:00 07/04/24 23:00 03/17/24 23:50 Temperature 97.8 F Pulse Rate 85 Pulse Rate [Pulse Oximeter] 82 Respiratory Rate 28 H 19 Blood Pressure Blood Pressure [Ri ght Arm] 115/77 Pulse Oximetry 89 91 Oxygen Delivery Me thod Room Air BiPAP Fraction of Inspir ed Oxygen 03/18/24 01:43 03/18/24 01:43 03/18/24 03:00 Temperature 97.9 F Pulse Rate 80 Pulse Rate [Pulse Oximeter] 79 Respiratory Rate 19 19 Blood Pressure Blood Pressure [Ri ght Arm] 123/69 Pulse Oximetry 91 Oxygen Delivery Me thod BiPAP Fraction of Inspir ed Oxygen 03/18/24 04:00 03/18/24 05:58 03/18/24 05:58 Temperature 96.6 F L 96.9 F L Pulse Rate Pulse Rate [Pulse Oximeter] 82 79 Respiratory Rate 16 16 16 Blood Pressure Blood Pressure [Ri ght Arm] 114/77 127/80 Pulse Oximetry 92 90 Oxygen Delivery Me thod BiPAP Room Air Fraction of Inspir ed Oxygen 03/18/24 07:00 03/18/24 07:50 03/18/24 08:00 Temperature 97.3 F L 97.8 F Pulse Rate Pulse Rate [Pulse Oximeter] 85 85 Respiratory Rate 18 18 18 Blood Pressure Blood Pressure [Ri ght Arm] 122/85 122/85 Pulse Oximetry 89 89 89 Oxygen Delivery Me thod Room Air Room Air Room Air Fraction of Inspir ed Oxygen 03/18/24 10:14 Temperature 97.9 F Pulse Rate Pulse Rate [Pulse Oximeter] 87 Respiratory Rate 18 Blood Pressure Blood Pressure [Ri ght Arm] 142/79 H Pulse Oximetry 88 Oxygen Delivery Me thod Room Air Fraction of Inspir ed Oxygen Labs/Imaging Labs Labs: Leukocytosis 13--16, BMP reviewed with creatinine slightly elevated at 1.4 Imaging Imaging: No new imaging Progress Note:A&P Assessment and plan (1) Acute appendicitis: Status: Acute Assessment and Plan: Patient is postop day 1 laparoscopic converted to open appendectomy for perforated appendicitis. Has been requiring BiPAP while sleeping. Vital signs stable overnight, afebrile. Leukocytosis is elevated today, not surprising given the amount of intra-abdominal contamination. VICKI drain with minimal output. -okay to DC telemetry -will continue CCU status due to ongoing respiratory needs, BiPAP while sleeping -continue IV antibiotics, Zosyn -continue to trend fever curve in daily CBC -for pain control will schedule IV Tylenol and Toradol. Dilaudid p.r.n. -daily BMP -DC Velasquez this morning -will continue VICKI drain, likely remove in next 1-2 days -continue clear liquids until patient passing gas -encourage ambulation -SCDs and Lovenox for DVT prophylaxis Hospitalist continues to follow, appreciate their assistance.
[2024-03-18] MEDS: ENOXAPARIN 40 MG/0.4 ML INJ SUBCUT (11:40)
[2024-03-18] MEDS: KETOROLAC 15 MG/ML inj IVP ×3 (11:41→22:22)
[2024-03-18] MEDS: ACETAMINOPHEN INJ 1,000 MG/100 ML VIAL 400 MG IVPB (11:41)
--- NOTE | 2024-03-18 12:46 | PM.IMPN1 ---
Progress Note: A&P Assessment and plan (1) Acute appendicitis: Problem details: - Status post open appendectomy by Dr. Hernandez 03/17/24 - cares per Dr. Hernandez. Status: Acute (2) NINFA (acute kidney injury): Problem details: - Cr 1.4 today up from 1.1. Suspect prerenal from sepsis/dehydration. Medications reviewed - starting low dose toradol for pain. Hold HCTZ and Losartan. Increase IVF maintenance and recheck in am. If continues to increase, will need to hold toradol also. Status: Acute (3) Hypokalemia: Problem details: - has history of hypokalemia, likely due to use of hydrochlorothiazide - Resolved. Monitor. Status: Acute (4) Hypothyroidism: Problem details: - patient able to give history today and states dose is 25 mcg daily. TSH today is within normal limits. Able to take oral fluids now, so will order usual PO dose. Status: Chronic (5) Obstructive sleep apnea treated with continuous positive airway pressure (CPAP): Problem details: Using BiPAP p.r.n. for hypopnea in the postop setting. Status: Chronic (6) Morbid obesity: Status: Chronic (7) Hypertension: Problem details: Continue Coreg, holding hydrochlorothiazide and losartan due to elevated creatinine today. Status: Chronic (8) Hyperlipidemia: Problem details: Continue statin Status: Chronic (9) Hypogonadism in male: Problem details: Patient has not been taking testosterone lately because he ran out. Status: Chronic Plan VTE prophylaxis with low-dose Lovenox and SCDs. Ambulate frequently as able. Subjective Time Seen by Provider: 10:00 Date Seen: 03/18/24 Interval history: Phil is feeling much better today. He tells me that he finally ?woke up? from surgery last night around 6:30 p.m.. He does not remember me coming in to see him around 330 p.m. yesterday. He had questions about his hospital stay and when he might be able to leave because he is not originally from here, this is just where his [employer] work is based out of. His family has come here by plain to drive his personal car and him home to [place]. Exam Narrative: Exam Narrative: General: No acute distress. Awake, alert, oriented x3. No pallor. No jaundice. Cardiovascular: Regular rate and rhythm. No murmurs, gallops, or rubs. Respiratory: Clear to auscultation bilaterally. No wheezes or crackles. Abdomen: Protuberant, abdominal binder in place. Bowel sounds present. This was removed for my exam. Bandages have some serosanguineous fluid which had extended slightly beyond the pen david from yesterday. J peg draining serosanguineous fluid. Const: Vital Signs, click to edit/add: Vital Signs - 24 hr 03/17/24 13:07 03/17/24 13:10 03/17/24 13:15 Temperature 97.7 F Pulse Rate 95 93 93 Pulse Rate [Pulse Oximeter] Respiratory Rate 16 20 24 Blood Pressure 128/80 137/79 139/82 Blood Pressure [Ri ght Arm] Pulse Oximetry 90 90 93 Oxygen Delivery Me thod BiPAP Fraction of Inspir ed Oxygen 35 03/17/24 13:20 03/17/24 13:25 03/17/24 13:30 Temperature Pulse Rate 91 91 90 Pulse Rate [Pulse Oximeter] Respiratory Rate 24 26 H 26 H Blood Pressure 137/79 136/80 137/79 Blood Pressure [Ri ght Arm] Pulse Oximetry 95 94 91 Oxygen Delivery Me thod BiPAP BiPAP Fraction of Inspir ed Oxygen 25 25 03/17/24 13:35 03/17/24 13:40 03/17/24 13:51 Temperature 97.9 F 98.1 F Pulse Rate 94 94 87 Pulse Rate [Pulse Oximeter] Respiratory Rate 26 H 26 H 29 H Blood Pressure 132/86 137/81 131/75 Blood Pressure [Ri ght Arm] Pulse Oximetry 92 90 91 Oxygen Delivery Me thod BiPAP BiPAP Fraction of Inspir ed Oxygen 25 25 03/17/24 14:00 03/17/24 14:15 03/17/24 14:30 Temperature 98.0 F 97.6 F 98.0 F Pulse Rate 90 89 92 Pulse Rate [Pulse Oximeter] Respiratory Rate 28 H 31 H 27 H Blood Pressure 139/74 131/77 132/75 Blood Pressure [Ri ght Arm] Pulse Oximetry 88 89 90 Oxygen Delivery Me thod BiPAP BiPAP BiPAP Fraction of Inspir ed Oxygen 25 25 25 03/17/24 14:36 03/17/24 14:45 03/17/24 15:00 Temperature 97.9 F Pulse Rate 87 87 Pulse Rate [Pulse Oximeter] Respiratory Rate 29 H 27 H Blood Pressure 126/73 Blood Pressure [Ri ght Arm] Pulse Oximetry 90 90 Oxygen Delivery Me thod BiPAP BiPAP Fraction of Inspir ed Oxygen 25 25 03/17/24 15:00 03/17/24 15:32 03/17/24 15:47 Temperature 97.5 F L 98.1 F Pulse Rate 88 87 Pulse Rate [Pulse Oximeter] Respiratory Rate 28 H 29 H Blood Pressure 164/83 H 131/75 Blood Pressure [Ri ght Arm] Pulse Oximetry 92 91 Oxygen Delivery Me thod BiPAP BiPAP Fraction of Inspir ed Oxygen 25 25 0.25 03/17/24 16:00 03/17/24 17:00 03/17/24 17:17 Temperature 98.1 F 97.6 F Pulse Rate 89 92 Pulse Rate [Pulse Oximeter] Respiratory Rate 29 H 30 H 31 H Blood Pressure 128/76 138/75 Blood Pressure [Ri ght Arm] Pulse Oximetry 92 91 Oxygen Delivery Me thod BiPAP BiPAP Fraction of Inspir ed Oxygen 25 25 03/17/24 18:00 03/17/24 18:56 03/17/24 19:00 Temperature 98.2 F 98.2 F Pulse Rate 97 97 97 Pulse Rate [Pulse Oximeter] Respiratory Rate 28 H 32 H Blood Pressure 130/76 128/77 Blood Pressure [Ri ght Arm] Pulse Oximetry 91 90 Oxygen Delivery Me thod BiPAP BiPAP Fraction of Inspir ed Oxygen 25 25 03/17/24 20:00 03/17/24 21:37 03/17/24 21:37 Temperature 98.2 F 98.6 F Pulse Rate Pulse Rate [Pulse Oximeter] 96 99 Respiratory Rate 29 H 28 H 28 H Blood Pressure Blood Pressure [Ri ght Arm] 117/83 110/67 Pulse Oximetry 91 87 L Oxygen Delivery Me thod BiPAP BiPAP Fraction of Inspir ed Oxygen 25 03/17/24 23:00 03/17/24 23:00 03/17/24 23:50 Temperature 97.8 F Pulse Rate 85 Pulse Rate [Pulse Oximeter] 82 Respiratory Rate 28 H 19 Blood Pressure Blood Pressure [Ri ght Arm] 115/77 Pulse Oximetry 89 91 Oxygen Delivery Me thod Room Air BiPAP Fraction of Inspir ed Oxygen 25 03/18/24 01:43 03/18/24 01:43 03/18/24 03:00 Temperature 97.9 F Pulse Rate 80 Pulse Rate [Pulse Oximeter] 79 Respiratory Rate 19 19 Blood Pressure Blood Pressure [Ri ght Arm] 123/69 Pulse Oximetry 91 Oxygen Delivery Me thod BiPAP Fraction of Inspir ed Oxygen 25 03/18/24 04:00 03/18/24 05:58 03/18/24 05:58 Temperature 96.6 F L 96.9 F L Pulse Rate Pulse Rate [Pulse Oximeter] 82 79 Respiratory Rate 16 16 16 Blood Pressure Blood Pressure [Ri ght Arm] 114/77 127/80 Pulse Oximetry 92 90 Oxygen Delivery Me thod BiPAP Room Air Fraction of Inspir ed Oxygen 25 03/18/24 07:00 03/18/24 07:50 03/18/24 08:00 Temperature 97.3 F L 97.8 F Pulse Rate Pulse Rate [Pulse Oximeter] 85 85 Respiratory Rate 18 18 18 Blood Pressure Blood Pressure [Ri ght Arm] 122/85 122/85 Pulse Oximetry 89 89 89 Oxygen Delivery Me thod Room Air [facility] 03/18/24 10:14 03/18/24 11:55 Temperature 97.9 F Pulse Rate Pulse Rate [Pulse Oximeter] 87 Respiratory Rate 18 Blood Pressure Blood Pressure [Ri ght Arm] 142/79 H Pulse Oximetry 88 Oxygen Delivery Me thod Room [facility] Labs Labs: Laboratory Results - last 24 hr 03/17/24 03/18/24 19:46 06:07 WBC 16.26 H RBC 4.63 Hgb 13.9 Hct 42.8 MCV 92 MCH 30 MCHC 33 RDW Coeff of Margo 14.2 Plt Count 186 Neut % (Auto) 84.9 H Lymph % (Auto) 6.0 L [place] % (Auto) 8.9 Eos % (Auto) 0.0 Baso % (Auto) 0.1 Neut # (Auto) 13.80 H Lymph # (Auto) 1.00 [place] # (Auto) 1.40 H Eos # (Auto) 0.00 Baso # (Auto) 0.00 Abs Immat Gran (auto) 0.00 Imm/Tot Granulo (auto) 0.1 Sodium 133 L Potassium 3.7 3.7 Chloride 99 Carbon Dioxide 28 Anion Gap 6 L BUN 23 Creatinine 1.4 Estimated Creat Clear 70.95 Estimated GFR 60 Glucose 156 H Calcium 8.0 L TSH 3.980
--- NOTE | 2024-03-18 19:57 | PC.NURSE ---
shift note: vss stable. q2 hrs. pt afeb. drsg to abd removed by surgeon. natali midline abd intact. VICKI drain site intact with outputs q2hrs. active x4 BS. pt passing flatus and burping. pt ambulated 200ft x4 in hernandes with sba. pt tolerating clrs w/o nausea. pandey dc'd intact @ 1157 with 75 cc void @ 1800. bladder scanned for 104cc x2. pain RUQ burning rating 4-9/10. PRN meds and ice given for pain control. Tylenol IV order revised by Dr. Hernandez via phone. sats 84-94%. Pt using V60. pt performing IS to 2500 q 2hrs.
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
[2024-03-18] MEDS: SIMVASTATIN 40 MG TABLET PO (22:22)
[2024-03-18] MEDS: LACTATED RINGERS 1000 ML 1,000 ML 100 ML IV (22:33)
[2024-03-19] VITALS (13 sets, daily range): BP systolic 94–140; BP diastolic 53–79; PULSE 79–105; RESP 18–22; TEMP 35.9–37.1; O2SAT 88–94
[2024-03-19] MEDS: PIPERACILLIN/TAZOBACTAM 3.375 GM in 0.9 % SODIUM CHLORIDE Mini-bag 100 ML IVPB ×5 (00:05→23:56)
[2024-03-19] MEDS: HYDROCODONE-ACETAMIN 5-325 MG 1 TAB PO ×4 (02:42→19:29)
[2024-03-19] MEDS: LEVOTHYROXINE 25 MCG TABLET PO (05:35)
[2024-03-19] MEDS: KETOROLAC 15 MG/ML inj IVP (05:36)
[2024-03-19] MEDS: OMEPRAZOLE 20 MG CAPSULE DR 40 MG PO (06:28)
--- NOTE | 2024-03-19 06:46 | PC.NURSE ---
End of shift [id number]: Pleasant and cooperative with cares. Pain well managed with PRN and scheduled medications as well as ice to operative site. Bowel sounds active x 4 quadrants, patient passing gas. Tolerating clear liquid diet, denies any nausea or vomiting. Ambulating with SBA, patient did walk in hallway x 1 this shift. VICKI drain to right lower abdomen, 2.5ml of serosanguineous drainage this shift.
[2024-03-19 06:50] LABS: Basophils Percent Auto 0.1 % (0.0-3.0); Hematocrit 37.8 % (37.0-53.0); Hemoglobin* 12.1 gm/dL (13.5-17.5); Immature Granulocytes Pct Auto 0.3 %; Lymphocytes Percent Auto 7.8 % (20-44); Mean Corpuscular HGB Conc 32 gm/dL (32-36); Mean Corpuscular Hemoglobin 30 pg (26-34); Mean Corpuscular Volume 93 fL (80-100); Monocytes Percent Auto 7.5 % (0.0-11.0); Neutrophils Percent Auto 83.3 % (42.0-72.0); Platelet Count* 180 K/uL (140-440); RDW Coefficient of Variation % 14.4 % (11.5-15.5); Red Blood Count 4.07 m/uL (4.30-5.90); White Blood Count* 13.41 K/uL (4.50-11.00)
[2024-03-19 07:16] LABS: Slide Review Reflex No
--- NOTE | 2024-03-19 08:26 | PM.IMPN1 ---
Progress Note: A&P Assessment and plan (1) Acute appendicitis: Problem details: - Status post open appendectomy by Dr. Hernandez 03/17/24 - Jpeg in place - cares per Dr. Hernandez Status: Acute (2) Hypoxia: Problem details: - Suspect due to atelectasis - Check CXR - Encourage IS, sitting up in chair, big breaths, coughing, ambulation - Oxygen supplementation as needed to keep O2 sats >88 - tolerating clears, STop IVF Status: Acute (3) Tobacco dependence syndrome: Problem details: - start nicotine replacement Status: Acute (4) Carpal tunnel syndrome of left wrist: Problem details: - Suspected, post op, likely due to volume overload - Stop IVF - Check US for DVT - Work with PT/OT Status: Acute (5) NINFA (acute kidney injury): Problem details: - 03/18 Cr 1.4 today up from 1.1. Suspect prerenal from sepsis/dehydration. Medications reviewed - starting low dose toradol for pain. Hold HCTZ and Losartan. Increase IVF maintenance and recheck in am. If continues to increase, will need to hold toradol also. - 03/19 Cr 1.5. Continue to hold HCTZ and losartan. Stop toradol. Reviewed medications, patient is also on zosyn, but no other renal toxic meds. Bladder scan. Recheck in am. If Cr continues to rise, consider renal US. Status: Acute (6) Hypokalemia: Problem details: - has history of hypokalemia, likely due to use of hydrochlorothiazide - Replace orally, recheck in am. Status: Acute (7) Hypothyroidism: Problem details: - Continue 25 mcg daily. TSH is within normal limits. Status: Chronic (8) Obstructive sleep apnea treated with continuous positive airway pressure (CPAP): Problem details: Using BiPAP p.r.n. for hypopnea in the postop setting. Status: Chronic (9) Morbid obesity: Status: Chronic (10) Hypertension: Problem details: Continue Coreg, holding hydrochlorothiazide and losartan due to elevated creatinine today. Status: Chronic (11) Hyperlipidemia: Problem details: Continue statin Status: Chronic (12) Hypogonadism in male: Problem details: Patient has not been taking testosterone lately because he ran out. Status: Chronic Plan VTE prophylaxis with low-dose Lovenox and SCDs. Ambulate frequently as able. Subjective Time Seen by Provider: 08:20 Date Seen: 03/19/24 Interval history: Phil complains of left hand numbness in his 1st 3 fingers and half of his 4th finger. He also tells me it feels swollen. He says it has been like this since surgery the other day. 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 He has not had any problems like that before. He is also starting to have cravings for cigarettes. He normally smokes a pack and half a day. Exam Narrative: Exam Narrative: General: No acute distress. Awake, alert, oriented. No pallor. No jaundice. Cardiovascular: Regular rate and rhythm. No murmurs, gallops, or rubs. Respiratory: Clear to auscultation bilaterally. Scattered expiratory wheezes. No crackles. Abdomen: Protuberant, abdominal binder in place. Bowel sounds present. J peg during has a scant amount of serosanguineous fluid. Extremities: Trace bilateral lower extremity edema. Left upper and somewhat swollen compared to the right, no erythema or tenderness. Light touch sensation diminished only in the hand in the distribution of the median nerve. Const: Vital Signs, click to edit/add: Vital Signs - 24 hr 03/18/24 10:14 03/18/24 11:55 03/18/24 13:00 Temperature 97.9 F 97.8 F Pulse Rate [Pulse Oximeter] 87 91 Respiratory Rate 18 22 Blood Pressure [Ri ght Arm] 142/79 H 144/82 H Pulse Oximetry 88 89 Oxygen Delivery Me thod Room Air Room Air Oxygen Flow Rate Fraction of Inspir ed Oxygen 25 03/18/24 15:00 03/18/24 16:00 03/18/24 18:00 Temperature 97.9 F 98.1 F Pulse Rate [Pulse Oximeter] 85 91 Respiratory Rate 18 18 18 Blood Pressure [Ri ght Arm] 107/72 125/80 Pulse Oximetry 90 91 90 Oxygen Delivery Me thod Room Air Nasal Cannula Room Air Oxygen Flow Rate 1 1 Fraction of Inspir ed Oxygen 03/18/24 20:00 03/18/24 22:00 03/18/24 22:00 Temperature 97.8 F 97.3 F L Pulse Rate [Pulse Oximeter] 84 84 76 Respiratory Rate 18 18 18 Blood Pressure [Ri ght Arm] 118/76 104/64 Pulse Oximetry 91 90 Oxygen Delivery Me thod Nasal Cannula Nasal Cannula Oxygen Flow Rate 1 1 Fraction of Inspir ed Oxygen 03/18/24 23:00 03/19/24 00:00 03/19/24 02:00 Temperature 97.4 F L 96.7 F L Pulse Rate [Pulse Oximeter] 86 80 Respiratory Rate 18 22 21 Blood Pressure [La ght Arm] 101/65 109/70 Pulse Oximetry 94 94 92 Oxygen Delivery Me thod BiPAP BiPAP BiPAP Oxygen Flow Rate 1 1 1 Fraction of Inspir ed Oxygen 25 25 25 03/19/24 02:00 03/19/24 04:00 03/19/24 06:00 Temperature 97.9 F 97.9 F Pulse Rate [Pulse Oximeter] 85 89 Respiratory Rate 21 20 20 [facility] 123/71 94/53 L Pulse Oximetry 91 89 Oxygen Delivery Me thod Nasal Cannula Nasal Cannula Oxygen Flow Rate 2 1 Fraction of Inspir ed Oxygen 03/19/24 08:00 Temperature Pulse Rate [Pulse Oximeter] 79 Respiratory Rate 20 Blood [facility] 107/65 Pulse Oximetry 89 Oxygen Delivery Me thod Nasal Cannula Oxygen Flow Rate 1 Fraction of Inspir ed Oxygen Labs Labs: Laboratory Results - last 24 hr 03/18/24 03/19/24 06:07 06:13 WBC 13.41 H RBC 4.07 L Hgb 12.1 L Hct 37.8 MCV 93 MCH 30 MCHC 32 RDW Coeff of Margo 14.4 Plt Count 180 Neut % (Auto) 83.3 H Lymph % (Auto) 7.8 L [place] % (Auto) 7.5 Eos % (Auto) 1.0 Baso % (Auto) 0.1 Neut # (Auto) 11.20 H Lymph # (Auto) 1.00 [place] # (Auto) 1.00 H Eos # (Auto) 0.10 Baso # (Auto) 0.00 Abs Immat Gran (auto) 0.00 Imm/Tot Granulo (auto) 0.3 TSH 3.980
--- NOTE | 2024-03-19 08:36 | CRLHL7_ITS ---
For Patients: As a result of the Century Cures Act, medical imaging exams and procedure reports are released immediately into your electronic medical record. You may view this report before your referring provider. If you have questions, please contact your health care provider. INDICATION: Left hand swelling and numbness COMPARISON: None. TECHNIQUE: Dixon-scale, color, and duplex Doppler imaging of the left upper extremity veins. Compression and augmentation attempted where anatomically and clinically feasible. FINDINGS: Laterality: Left Examined veins: Internal jugular, innominate, subclavian, axillary, brachial, ulnar, radial Basilic, cephalic The examined veins are patent with normal grayscale appearance and normal compressibility where anatomically feasible. Normal color Doppler flow. Normal venous waveforms on duplex Doppler ultrasound with normal augmentation. The right internal jugular vein was sampled for comparison and is normal. IMPRESSION: No deep vein thrombosis in the left upper extremity. Dictated by Ludy Jack MD @ 03/19/2024 10:26:02 AM (Electronically Signed)
--- NOTE | 2024-03-19 08:36 | CRLHL7_ITS ---
For Patients: As a result of the Cures Act, medical imaging exams and procedure reports are released immediately into your electronic medical record. You may view this report before your referring provider. If you have questions, please contact your health care provider. INDICATION: Hypoxia, recent abdominal surgery TECHNIQUE: 1 view chest radiograph COMPARISON: None. FINDINGS: Devices: None. Lung volumes are very low. Diffuse vascular crowding without any focal opacities. No pleural effusion. No pneumothorax. Heart size is within normal limits for lung volumes and technique. IMPRESSION: Very low lung volumes. Dictated by Ludy Jack MD @ 03/19/2024 9:13:12 AM (Electronically Signed)
[2024-03-19 08:43] LABS: Chloride* 99 mmol/L (96-114); Potassium* 3.2 mmol/L (3.6-5.1); Sodium* 132 mmol/L (135-149)
[2024-03-19 08:46] LABS: Anion Gap 6 mEq/L (7-15); Blood Urea Nitrogen* 29 mg/dL (7-30); Carbon Dioxide* 27 mmol/L (20-32); Creatinine* 1.5 mg/dL (0.5-1.5); Est. Creatinine Clearance* 66.22; Estimated Glomerular Filt Rate 55 ml/min; Glucose* 142 mg/dL (60-115)
[2024-03-19 08:47] LABS: Calcium* 7.7 mg/dL (8.4-10.6)
[2024-03-19] MEDS: carvediloL 6.25 MG TABLET 3.125 MG PO ×2 (09:28→21:33)
[2024-03-19] MEDS: POTASSIUM CHLORIDE 10 MEQ CAPSULE ER PO (09:28)
[2024-03-19] MEDS: NICOTINE 21 MG PATCH 1 PATCH TRANSDERMA (09:28)
[2024-03-19] MEDS: IPRAT-ALBUT 0.5-2.5 MG/3 ML NEB 1 NEB IH ×3 (09:28→21:33)
[2024-03-19 09:49] LABS: Lab Add On Test New Spec Needed
--- NOTE | 2024-03-19 10:26 | RESP.RT ---
pt seen in AM. BBS clear. Needs encouragement for IS C&DB. Can do IS up to 1999. Continue with Q2 aggressively, pt with probable atelectasis. Off oxygen this AM, SPO2 89-90% We are unable to use pt's own CPAP unit, secondary to damage. Reviewed with Pt. the possible DME companies to f/u with when he returns home. Suggested he get another Sleep Study. Unsure of what his CPAP is set at, after conversation with him. Continue to use our BIPAP as needed.
[2024-03-19] MEDS: POTASSIUM BICARB 25 MEQ EFFERVESCENT TAB PO ×2 (10:38→12:21)
[2024-03-19] MEDS: LACTATED RINGERS 1000 ML 1,000 ML 50 ML IV (10:38)
[2024-03-19 11:05] LABS: Ionized Calcium* 1.02 mmol/L (1.11-1.30)
--- NOTE | 2024-03-19 11:37 | P.GSPN_ITS ---
Subjective Subjective Date Seen: 03/19/24 Interval history: Is doing well this morning. He has been up walking the halls. His pain is rated 4/10. Overall his pain is improved compared to yesterday. He was able to sleep better last night. He was feeling hungry this morning and ate some cream a week, ice cream in butter scotch putting. Denies any nausea or vomiting. Has been passing gas, no bowel movement yet. He is reporting some numbness of his left hand, present since surgery. Exam Narrative: Exam Narrative: General: Alert and oriented, no acute distress Abdomen: Obese abdomen, soft and appropriately tender over incision sites. Midline incision with natali in place, Steri-Strips over laparoscopic incision sites. No concern for infection. Right lower quadrant with scant amount of drainage. Drain removed at bedside. Const: Vital Signs, click to edit/add: Vital Signs - 24 hr 03/18/24 11:55 03/18/24 13:00 03/18/24 15:00 Temperature 97.8 F Pulse Rate [Pulse Oximeter] 91 Respiratory Rate 22 18 Blood Pressure [Ri ght Arm] 144/82 H Pulse Oximetry 89 90 Oxygen Delivery Me thod Room Air Room Air Oxygen Flow Rate 1 Fraction of Inspir ed Oxygen 03/18/24 16:00 03/18/24 18:00 03/18/24 20:00 Temperature 97.9 F 98.1 F 97.8 F Pulse Rate [Pulse Oximeter] 85 91 84 Respiratory Rate 18 18 18 Blood Pressure [Ri ght Arm] 107/72 125/80 118/76 Pulse Oximetry 91 90 91 Oxygen Delivery Me thod Nasal Cannula Room Air Nasal Cannula Oxygen Flow Rate 1 1 Fraction of Inspir ed Oxygen 03/18/24 22:00 03/18/24 22:00 03/18/24 23:00 Temperature 97.3 F L Pulse Rate [Pulse Oximeter] 84 76 Respiratory Rate 18 18 18 Blood Pressure [Ri ght Arm] 104/64 Pulse Oximetry 90 94 Oxygen Delivery Me thod Nasal Cannula BiPAP Oxygen Flow Rate 1 1 Fraction of Inspir ed Oxygen 03/19/24 00:00 03/19/24 02:00 03/19/24 02:00 Temperature 97.4 F L 96.7 F L Pulse Rate [Pulse Oximeter] 86 80 Respiratory Rate 22 21 21 Blood Pressure [Ri ght Arm] 101/65 109/70 Pulse Oximetry 94 92 Oxygen Delivery Me thod BiPAP BiPAP Oxygen Flow Rate 1 1 Fraction of Inspir ed Oxygen 25 25 03/19/24 04:00 03/19/24 06:00 03/19/24 07:00 Temperature 97.9 F 97.9 F Pulse Rate [Pulse Oximeter] 85 89 Respiratory Rate 20 20 18 Blood Pressure [Ri ght Arm] 123/71 94/53 L Pulse Oximetry 91 89 91 Oxygen Delivery Me thod Nasal Cannula Nasal Cannula Room Air Oxygen Flow Rate 2 1 Fraction of Inspir ed Oxygen 03/19/24 08:00 Temperature Pulse Rate [Pulse Oximeter] 79 Respiratory Rate 20 Blood Pressure [Ri ght Arm] 107/65 Pulse Oximetry 89 Oxygen Delivery Me thod Nasal Cannula Oxygen Flow Rate 1 Fraction of Inspir ed Oxygen Labs/Imaging Labs Labs: Mild leukocytosis (13). BMP reviewed, mild hypokalemia and hyponatremia. Creatinine stable at 1.5. Progress Note:A&P Assessment and plan (1) Acute appendicitis: Status: Acute Assessment and Plan: Patient is postop day 2 laparoscopic converted to open appendectomy for perforated appendicitis. BiPAP while sleeping, does have LEANNE. Patient does wear a CPAP at night. Vital signs stable, afebrile. Leukocytosis is trending down (16--13). Patient with evidence of return of bowel function. Diet advanced as tolerated today. Right lower quadrant drain was removed at bedside. Will continue IV antibiotics until patient has normalization of his WBC. Will plan to transition at that point to oral antibiotics to complete a 10 day course. Numbness of left hand is likely positional from surgery. No evidence of DVT on ultrasound imaging. Would expect this to improve over the next 7 days. Anticipate discharge on Thursday. Patient states that when he does leave the hospital he will be traveling by car to [place]. Advised him to take frequent breaks and wear compression socks to help minimize DVT. He will need to follow up with a physician 10 days postop to remove the natali. I spoke with his daughter in law Kelly, who will be making an appointment with her primary care doctor since the patient does not have anyone he sees regularly. We also reviewed his higher risk for postop abscess given the amount of intra-abdominal contamination. Signs of infection, including: Increasing abdominal pain, nausea/vomiting and fevers. -DC CCU status -BiPAP while sleeping -continue IV antibiotics, Zosyn until normalization of WBC. Anticipate at that time transitioning to Augmentin to complete a 10 day course. -continue to trend fever curve in daily CBC -for pain control: Tylenol and Toradol. Creatinine is stable at 1.5. Will plan to discontinue Toradol tomorrow. Dilaudid and [place] p.r.n. -daily BMP -advance diet as tolerated -encourage ambulation -SCDs and Lovenox for DVT prophylaxis Hospitalist continues to follow, appreciate their assistance.
[2024-03-19] MEDS: ENOXAPARIN 40 MG/0.4 ML INJ SUBCUT (12:21)
--- NOTE | 2024-03-19 18:09 | PC.NURSE ---
shift note: pt up sba ambulating hernandes x3. pt rating abd pain 7/10. pt medicated with prn norco x 2. BS active x4. abd distended but soft on palpation. vertical incision site with intact natali. umbilicus with small amount of dried blood. lap site x3 intact with steri strips. pt passing flatus. bladder scan pre void this a.m 110cc. pt voided 200cc. post void 34cc. Pt tolerating full liquids. LS dim/clr. IS indept to 2500. IV patent
[2024-03-19] MEDS: SENNOSIDES/DOCUSATE TABLET 1 TAB PO (21:32)
[2024-03-19] MEDS: HYDROmorphone 0.5 mg/0.5 ml inj IVP (21:33)
[2024-03-19] MEDS: SIMVASTATIN 40 MG TABLET PO (21:33)
[2024-03-20] VITALS (9 sets, daily range): BP systolic 132–160; BP diastolic 76–96; PULSE 92–103; RESP 18–22; TEMP 36.5–37.3; O2SAT 87–91
[2024-03-20] MEDS: IPRAT-ALBUT 0.5-2.5 MG/3 ML NEB 1 NEB IH ×4 (02:32→21:19)
[2024-03-20] MEDS: HYDROCODONE-ACETAMIN 5-325 MG 1 TAB PO ×5 (02:32→23:42)
[2024-03-20] MEDS: OMEPRAZOLE 20 MG CAPSULE DR 40 MG PO (06:12)
[2024-03-20] MEDS: LEVOTHYROXINE 25 MCG TABLET PO (06:12)
[2024-03-20] MEDS: PIPERACILLIN/TAZOBACTAM 3.375 GM in 0.9 % SODIUM CHLORIDE Mini-bag 100 ML IVPB ×4 (06:13→23:43)
--- NOTE | 2024-03-20 06:59 | PC.NURSE ---
End of shift [id number]: Pleasant and cooperative with cares. Pain well managed with current regimen. Abdominal binder removed while sitting in chair and while in bed. New ABD dressing applied, natali and steri strips intact to abdomen, patchy areas of redness to abdomen on lateral sides of midline incision. No drainage noted, dried blood to incision. Ambulates in hallway with SBA. Denies any nausea or vomiting. Bowel sounds active x 4 quadrants, patients passing flatus, states he feels the need to have a bowel movement but has been passing gas only on the toilet. Tolerating full liquid diet, did request regular diet food this AM and tolerated well without nausea, vomiting or increased pain.
[2024-03-20 07:06] LABS: Ionized Calcium* 1.01 mmol/L (1.11-1.30)
[2024-03-20 07:18] LABS: Chloride* 99 mmol/L (96-114); Potassium* 3.4 mmol/L (3.6-5.1); Sodium* 133 mmol/L (135-149)
[2024-03-20 07:21] LABS: Anion Gap 5 mEq/L (7-15); Carbon Dioxide* 29 mmol/L (20-32); Creatinine* 1.1 mg/dL (0.5-1.5); Estimated Glomerular Filt Rate 80 ml/min
[2024-03-20 07:22] LABS: Blood Urea Nitrogen* 17 mg/dL (7-30); Glucose* 140 mg/dL (60-115)
[2024-03-20 07:27] LABS: Basophils Percent Auto 0.2 % (0.0-3.0); Hematocrit 37.2 % (37.0-53.0); Hemoglobin* 12.2 gm/dL (13.5-17.5); Immature Granulocytes Pct Auto 0.6 %; Lymphocytes Percent Auto 11.6 % (20-44); Mean Corpuscular HGB Conc 33 gm/dL (32-36); Mean Corpuscular Hemoglobin 30 pg (26-34); Mean Corpuscular Volume 93 fL (80-100); Monocytes Percent Auto 8.7 % (0.0-11.0); Neutrophils Percent Auto 76.9 % (42.0-72.0); Platelet Count* 205 K/uL (140-440); Red Blood Count 4.02 m/uL (4.30-5.90); White Blood Count* 11.62 K/uL (4.50-11.00)
[2024-03-20 07:43] LABS: Slide Review Reflex No
[2024-03-20] MEDS: LACTATED RINGERS 1000 ML 1,000 ML 50 ML IV (08:04)
[2024-03-20] MEDS: CALCIUM GLUC 1,000MG/50 ML 1,000 MG/50 ML BAG 100 MG IVPB (08:49)
[2024-03-20] MEDS: POTASSIUM BICARB 25 MEQ EFFERVESCENT TAB PO (08:51)
[2024-03-20] MEDS: NICOTINE 21 MG PATCH 1 PATCH TRANSDERMA (08:51)
[2024-03-20] MEDS: CALCIUM CARBONATE 500 MG CHEW PO ×2 (08:51→21:18)
[2024-03-20] MEDS: POTASSIUM CHLORIDE 10 MEQ CAPSULE ER 20 MEQ PO (08:52)
[2024-03-20] MEDS: SENNOSIDES/DOCUSATE TABLET 1 TAB PO ×3 (08:52→21:18)
[2024-03-20] MEDS: carvediloL 6.25 MG TABLET 3.125 MG PO ×2 (08:52→21:18)
--- NOTE | 2024-03-20 11:50 | RESP.RT ---
Pt using our BIPAP at HS, and while napping during the day. Tolerates well. Pt's own CPAP unit not serviceable in the hospital, secondary to its condition. BBS clear. Reviewed with Pt need to f/u with a primary care for oxygen assessment, possible new sleep study. Reviewed with PT the national [employer] companies that may be able to assist him with new CPAP equipment. Seems moderately interested. A/P attempt to keep off oxygen, Utilize turning, coughing, IS, etc before placing on oxygen. PT. is walking in hallways today. Doing well. Looks like his baseline SPO2 runs 87-89%.
[2024-03-20] MEDS: ENOXAPARIN 40 MG/0.4 ML INJ SUBCUT (11:59)
--- NOTE | 2024-03-20 12:13 | PM.IMPN1 ---
Progress Note: A&P Assessment and plan (1) Acute appendicitis: Problem details: - Status post open appendectomy by Dr. Hernandez 03/17/24 - Jpeg removed yesterday - cares per Dr. Hernandez Status: Acute (2) Hypoxia: Problem details: - Suspect due to atelectasis, LEANNE, hypoventilation-obesity syndrome, abdominal pain/poor inspiration - CXR showed only low lung volumes - Encourage IS, sitting up in chair, big breaths, coughing, ambulation - Oxygen supplementation as needed to keep O2 sats >88 Status: Acute (3) Tobacco dependence syndrome: Problem details: - nicotine replacement Status: Acute (4) Carpal tunnel syndrome of left wrist: Problem details: - Suspected, post op, likely due to volume overload - Stopped IVF - US negative for DVT - elevate LUE - Work with PT/OT Status: Acute (5) NINFA (acute kidney injury): Problem details: - 03/18 Cr 1.4 today up from 1.1. Suspect prerenal from sepsis/dehydration. Medications reviewed - starting low dose toradol for pain. Hold HCTZ and Losartan. Increase IVF maintenance and recheck in am. If continues to increase, will need to hold toradol also. - 03/19 Cr 1.5. Continue to hold HCTZ and losartan. Stop toradol. Reviewed medications, patient is also on zosyn, but no other renal toxic meds. Bladder scan. Recheck in am. If Cr continues to rise, consider renal US. - 03/20 Cr back to baseline today. BP elevated, but will hold HCTZ for one more day due to hypokalemia. Resume lisinopril. Status: Acute (6) Hypokalemia: Problem details: - has history of hypokalemia, likely due to use of hydrochlorothiazide - Replace orally, recheck in am. Status: Acute (7) Hypothyroidism: Problem details: - Continue 25 mcg daily. TSH is within normal limits. Status: Chronic (8) Obstructive sleep apnea treated with continuous positive airway pressure (CPAP): Problem details: Using BiPAP p.r.n. for hypopnea in the postop setting. Status: Chronic (9) Morbid obesity: Status: Chronic (10) Hypertension: Problem details: Continue Coreg, resume lisinopril holding hydrochlorothiazide Status: Chronic (11) Hyperlipidemia: Problem details: Continue statin Status: Chronic (12) Hypogonadism in male: Problem details: Patient has not been taking testosterone lately because he ran out. Status: Chronic Plan VTE prophylaxis with low-dose Lovenox and SCDs. Ambulate frequently as able. Anticipating likely d/c home tomorrow. Subjective Time Seen by Provider: 09:50 Date Seen: 03/20/24 Interval history: Phil is doing well. Drain is out. Pain is improving. He says it is still painful to take deep breaths, but he feels better able to do so. He notes his left hand is a little less numb when elevating it. Exam Narrative: Exam Narrative: General: No acute distress. Awake, alert, oriented. No pallor. No jaundice. Cardiovascular: Regular rate and rhythm. No murmurs, gallops, or rubs. Respiratory: Clear to auscultation bilaterally. Scattered expiratory wheezes. No crackles. Abdomen: Protuberant, abdominal binder in place. Bowel sounds present. Const: Vital Signs, click to edit/add: Vital Signs - 24 hr 03/19/24 14:00 03/19/24 15:00 03/19/24 15:16 Temperature 98.8 F Pulse Rate [Pulse Oximeter] 92 92 Respiratory Rate 20 20 20 Blood Pressure [Ri ght Arm] 140/78 H Pulse Oximetry 92 89 Oxygen Delivery Me thod Room Air Room Air Oxygen Flow Rate Fraction of Inspir ed Oxygen 03/19/24 19:00 03/19/24 22:00 03/19/24 23:00 Temperature Pulse Rate [Pulse Oximeter] 105 H 103 H Respiratory Rate 20 20 22 Blood Pressure [Ri ght Arm] 123/71 Pulse Oximetry 88 89 Oxygen Delivery Me thod Room Air Room Air Oxygen Flow Rate Fraction of Inspir ed Oxygen 03/19/24 23:00 03/20/24 02:00 03/20/24 03:00 Temperature 98.8 F 97.7 F Pulse Rate [Pulse Oximeter] 103 H 103 H 95 Respiratory Rate 22 22 20 Blood Pressure [Ri ght Arm] 116/79 132/78 Pulse Oximetry 88 91 Oxygen Delivery Me thod Room Air BiPAP Oxygen Flow Rate 1 Fraction of Inspir ed Oxygen 25 03/20/24 07:51 03/20/24 11:49 Temperature 97.9 F Pulse Rate [Pulse Oximeter] 92 Respiratory Rate 18 Blood Pressure [Ri ght Arm] 160/79 H Pulse Oximetry 88 Oxygen Delivery Me thod Room Air Oxygen Flow Rate Fraction of Inspir ed Oxygen 25 Labs Labs: Laboratory Results - last 24 hr 03/20/24 06:41 WBC 11.62 H RBC 4.02 L Hgb 12.2 L Hct 37.2 MCV 93 MCH 30 MCHC 33 RDW Coeff of Margo 14.0 Plt Count 205 Neut % (Auto) 76.9 H Lymph % (Auto) 11.6 L [place] % (Auto) 8.7 Eos % (Auto) 2.0 Baso % (Auto) 0.2 Neut # (Auto) 8.90 H Lymph # (Auto) 1.30 [place] # (Auto) 1.00 H Eos # (Auto) 0.20 Baso # (Auto) 0.00 Abs Immat Gran (auto) 0.10 Imm/Tot Granulo (auto) 0.6 Sodium 133 L Potassium 3.4 L Chloride 99 Carbon Dioxide 29 Anion Gap 5 L BUN 17 Creatinine 1.1 Estimated Creat Clear 90.30 Estimated GFR 80 Glucose 140 H Calcium 8.0 L Ionized Calcium [place] 1.01 L
--- NOTE | 2024-03-20 19:29 | PC.NURSE ---
shift note: pt temps 99, 99.2 this afternoon. pt rating pain 7/10 at highest and received prn norco with relief. BS active x4. pt passing flatus. No BM. redness marked around umbilicus. Dr. Hernandez notified of redness. order to outline. small amount of bloody discharge from lower natali, abd pad placed over site. pt ambulating hernandes
[2024-03-20] MEDS: SIMVASTATIN 40 MG TABLET PO (21:18)
[2024-03-20] MEDS: SODIUM CHLORIDE 0.9 % (FLUSH) 10 ML SYRINGE 5 ML IVF (21:19)
--- NOTE | 2024-03-20 21:21 | PM.EN ---
Chart Event Note Chart Event Note: Spoke with nurse this evening. Patient with increased serosanguineous output from midline incision. Mild erythema outlined earlier in the day around the umbilicus has extended with patient reporting pain to the area. Dr. Lawson broadened antibiotics to Vanc/Zosyn and took a culture of the fluid. Patient is at high risk for post op infection, given long surgery and presence of infection/stool in the abdomen. He is also at risk for fascial dehiscence given central obesity, hypoxia with coughing, DM and smoking history. Recommend changing ABD pads as needed and continuing to wear the abdominal binder. Will make patient NPO with plan for bedside evaluation in the morning.
[2024-03-20] MEDS: LACTATED RINGERS 1000 ML 1,000 ML 100 ML IV (23:43)
[2024-03-21] VITALS (8 sets, daily range): BP systolic 116–141; BP diastolic 71–96; PULSE 77–94; RESP 18–22; TEMP 36.6–37.2; O2SAT 88–90
[2024-03-21] MEDS: HYDROCODONE-ACETAMIN 5-325 MG 1 TAB PO ×3 (03:43→20:22)
[2024-03-21] MEDS: LEVOTHYROXINE 25 MCG TABLET PO (06:02)
[2024-03-21] MEDS: OMEPRAZOLE 20 MG CAPSULE DR 40 MG PO (06:02)
[2024-03-21] MEDS: PIPERACILLIN/TAZOBACTAM 3.375 GM in 0.9 % SODIUM CHLORIDE Mini-bag 100 ML IVPB ×4 (06:02→23:29)
[2024-03-21] MEDS: 0.9 % SODIUM CHLORIDE 250 ml IV (06:02)
--- NOTE | 2024-03-21 06:44 | PC.NURSE ---
End of shift report [id number]: Alert and oriented x 4. Pain is well managed with PRN medications, ice and rest. At 1930 automatic typewriter inspector assessed dressing to abdomen and found 2 ABD pads fully saturated with serosanguineous drainage, drainage also noted to have soaked patients undergarments. Dressings removed, fluid draining from natali starting from bottom and up 10 natali. Redness extending outside of marking on right side. Dr. Lawson updated and assessed patient?s abdomen. New orders for wound culture and vancomycin. Range Mechanic received call from Dr. Hernandez, update given and new orders received. Patient and family updated with call from surgeon and in agreement with plan. Abdominal dressing changed x 3 this shift due to saturation. Patient reports feeling feverish with diaphoresis and chills, highest temp this shift at 2330 was 99.3. ?
[2024-03-21 07:06] LABS: Basophils Percent Auto 0.3 % (0.0-3.0); Hematocrit 39.6 % (37.0-53.0); Hemoglobin* 12.8 gm/dL (13.5-17.5); Immature Granulocytes Pct Auto 1.3 %; Lymphocytes Percent Auto 13.8 % (20-44); Mean Corpuscular HGB Conc 32 gm/dL (32-36); Mean Corpuscular Hemoglobin 30 pg (26-34); Mean Corpuscular Volume 93 fL (80-100); Monocytes Percent Auto 9.6 % (0.0-11.0); Platelet Count* 227 K/uL (140-440); RDW Coefficient of Variation % 14.1 % (11.5-15.5); Red Blood Count 4.27 m/uL (4.30-5.90); White Blood Count* 11.74 K/uL (4.50-11.00)
[2024-03-21 07:13] LABS: Slide Review Reflex No
[2024-03-21] MEDS: HYDROmorphone 0.5 mg/0.5 ml inj IVP ×2 (07:21→07:56)
[2024-03-21] MEDS: carvediloL 6.25 MG TABLET 3.125 MG PO ×2 (08:51→20:23)
[2024-03-21] MEDS: CALCIUM CARBONATE 500 MG CHEW PO ×2 (08:51→20:24)
[2024-03-21] MEDS: LOSARTAN POTASSIUM 50 MG TABLET 100 MG PO (08:51)
[2024-03-21] MEDS: SENNOSIDES/DOCUSATE TABLET 1 TAB PO (08:52)
[2024-03-21] MEDS: IPRAT-ALBUT 0.5-2.5 MG/3 ML NEB 1 NEB IH ×3 (08:52→20:23)
[2024-03-21] MEDS: NICOTINE 21 MG PATCH 1 PATCH TRANSDERMA (08:52)
[2024-03-21] MEDS: POTASSIUM CHLORIDE 10 MEQ CAPSULE ER 20 MEQ PO (08:52)
--- NOTE | 2024-03-21 11:06 | PM.GSPN ---
Subjective Subjective Date Seen: 03/21/24 Interval history: Patient with increased pain and drainage to lower part of his incision. Is moving independently. Has been tolerating food with no nausea or vomiting. Continues to pass gas, no BM. No fevers, although felt feverish overnight. Exam Narrative: Exam Narrative: Gen: alert and oriented, NAD Abd: Midline incision with some erythema. Serosanguinous fluid from lower portion of incision. 5 natali removed with small hematoma evacuated. No purulence. Fat healthy in appearance. Abundant subcutaneous fat but fascia palpated. No obvious dehiscence and no evidence of evisceration. Const: Vital Signs, click to edit/add: Vital Signs - 24 hr 03/20/24 11:49 03/20/24 15:00 03/20/24 15:00 Temperature Pulse Rate [Pulse Oximeter] 98 Respiratory Rate 18 18 Blood Pressure [Ri ght Arm] Pulse Oximetry 91 Oxygen Delivery Me thod Room Air Oxygen Flow Rate 1 Fraction of Inspir ed Oxygen 25 25 03/20/24 16:53 03/20/24 20:00 03/20/24 23:00 Temperature 99.2 F 97.8 F Pulse Rate [Pulse Oximeter] 98 95 94 Respiratory Rate 18 20 20 Blood Pressure [Ri ght Arm] 135/76 135/78 Pulse Oximetry 91 87 L Oxygen Delivery Me thod Room Air Room Air Oxygen Flow Rate Fraction of Inspir ed Oxygen 03/20/24 23:00 03/20/24 23:00 03/21/24 03:00 Temperature 99.1 F 98.6 F Pulse Rate [Pulse Oximeter] 94 88 Respiratory Rate 22 22 19 Blood Pressure [Ri ght Arm] 138/86 134/96 H Pulse Oximetry 90 90 90 Oxygen Delivery Me thod Room Air Room Air Room Air Oxygen Flow Rate 1 Fraction of Inspir ed Oxygen 25 03/21/24 07:32 03/21/24 07:34 03/21/24 07:58 Temperature 97.9 F Pulse Rate [Pulse Oximeter] 83 Respiratory Rate 22 20 Blood Pressure [Ri ght Arm] 123/71 Pulse Oximetry 88 88 Oxygen Delivery Me thod Room Air Room Air Oxygen Flow Rate Fraction of Inspir ed Oxygen 25 Labs/Imaging Labs Labs: WBC (11) Progress Note:A&P Assessment and plan (1) Acute appendicitis: Status: Acute Assessment and Plan: Patient is postop day 3 laparoscopic converted to open appendectomy for perforated appendicitis. Increased drainage from incision, suspect infection vs partial dehiscence. 5 inferior natali removed at bedside, I am able to palpate the underlying fascia, suture palpated just superior to opening. No evidence of evisceration or obvious dehiscence. Wound was packed with Kerlix dressing. Will reassess this afternoon and change dressing. Nursing to change outer dressing as needed. Recommend wearing abdominal binder at all times. Will continue with IV Vanc/Zosyn and have patient remain inpatient. Ok to restart diet. -BiPAP while sleeping -IV Zosyn/Vanco with culture of wound pending. -continue to trend fever curve in daily CBC -for pain control: Tylenol, Dilaudid and [place] p.r.n. -regular diet as tolerated -encourage ambulation, wear abdominal binder. -SCDs and Lovenox for DVT prophylaxis Hospitalist continues to follow, appreciate their assistance.
[2024-03-21] MEDS: ENOXAPARIN 40 MG/0.4 ML INJ SUBCUT (11:39)
[2024-03-21] MEDS: LACTATED RINGERS 1000 ML 1,000 ML 100 ML IV (15:05)
--- NOTE | 2024-03-21 15:08 | P.IMPN_ITS ---
Progress Note: A&P Assessment and plan (1) Acute appendicitis: Problem details: - Status post open appendectomy by Dr. Hernandez 03/17/24 - VICKI drain removed 03/19 - cares per Dr. Hernandez Status: Acute (2) Hypoxia: Problem details: - Suspect due to atelectasis, LEANNE, hypoventilation-obesity syndrome, abdominal pain/poor inspiration - CXR showed only low lung volumes - Encourage IS, sitting up in chair, big breaths, coughing, ambulation - Oxygen supplementation as needed to keep O2 sats >88 Status: Acute (3) Tobacco dependence syndrome: Problem details: - nicotine replacement Status: Acute (4) Carpal tunnel syndrome of left wrist: Problem details: - Suspected, post op, likely due to volume overload - Stopped IVF - US negative for DVT - elevate LUE - Work with PT/OT - wrist splinted today by myself Status: Acute (5) NINFA (acute kidney injury): Problem details: - 03/18 Cr 1.4 today up from 1.1. Suspect prerenal from sepsis/dehydration. Medications reviewed - starting low dose toradol for pain. Hold HCTZ and Losartan. Increase IVF maintenance and recheck in am. If continues to increase, will need to hold toradol also. - 03/19 Cr 1.5. Continue to hold HCTZ and losartan. Stop toradol. Reviewed medications, patient is also on zosyn, but no other renal toxic meds. Bladder scan. Recheck in am. If Cr continues to rise, consider renal US. - 03/20 Cr back to baseline today. BP elevated, but will hold HCTZ for one more day due to hypokalemia. Resume lisinopril. Status: Acute (6) Hypokalemia: Problem details: - has history of hypokalemia, likely due to use of hydrochlorothiazide - Replace orally, recheck in am. Status: Acute (7) Hypothyroidism: Problem details: - Continue 25 mcg daily. TSH is within normal limits. Status: Chronic (8) Obstructive sleep apnea treated with continuous positive airway pressure (CPAP): Problem details: Using BiPAP p.r.n. for hypopnea in the postop setting. Status: Chronic (9) Morbid obesity: Status: Chronic (10) Hypertension: Problem details: Continue Coreg, resume lisinopril holding hydrochlorothiazide Status: Chronic (11) Hyperlipidemia: Problem details: Continue statin Status: Chronic (12) Hypogonadism in male: Problem details: Patient has not been taking testosterone lately because he ran out. Status: Chronic Plan VTE prophylaxis with low-dose Lovenox and SCDs. Ambulate frequently as able. Subjective Time Seen by Provider: 07:38 Date Seen: 03/21/24 Interval history: Phil had a lot of drainage from his wound overnight. Dr. Hernandez saw him and evacuated a hematoma at the inferior portion of the surgical wound. He denies any increased pain. He continues to have tingling in the median nerve distribution of his left hand. He notes the swelling is better. We do not have a cocked up wrist splint available, so I fashioned one from [employer] and ilya wraps. Exam Narrative: Exam Narrative: General: No acute distress. Awake, alert, oriented. No pallor. No jaundice. Cardiovascular: Regular rate and rhythm. No murmurs, gallops, or rubs. Respiratory: Clear to auscultation bilaterally. Scattered expiratory wheezes. No crackles. Abdomen: Protuberant. Bowel sounds present. Erythema around inferior portion of incision, extended slightly beyond lines drawn last night. Small open area on skin and fat at base of wound. Const: Vital Signs, click to edit/add: Vital Signs - 24 hr 03/20/24 16:53 03/20/24 20:00 03/20/24 23:00 Temperature 99.2 F 97.8 F Pulse Rate [Pulse Oximeter] 98 95 94 Respiratory Rate 18 20 20 Blood Pressure [Ri ght Arm] 135/76 135/78 Pulse Oximetry 91 87 L Oxygen Delivery Me thod Room Air Room Air Oxygen Flow Rate Fraction of Inspir ed Oxygen 03/20/24 23:00 03/20/24 23:00 03/21/24 03:00 Temperature 99.1 F 98.6 F Pulse Rate [Pulse Oximeter] 94 88 Respiratory Rate 22 22 19 Blood Pressure [Ri ght Arm] 138/86 134/96 H Pulse Oximetry 90 90 90 Oxygen Delivery Me thod Room Air Room Air Room Air Oxygen Flow Rate 1 Fraction of Inspir ed Oxygen 25 03/21/24 07:32 03/21/24 07:34 03/21/24 07:58 Temperature 97.9 F Pulse Rate [Pulse Oximeter] 83 Respiratory Rate 22 20 Blood Pressure [Ri ght Arm] 123/71 Pulse Oximetry 88 88 Oxygen Delivery Me thod Room Air Room Air Oxygen Flow Rate Fraction of Inspir ed Oxygen 25 03/21/24 11:00 03/21/24 14:37 03/21/24 14:56 Temperature 98.4 F 99 F Pulse Rate [Pulse Oximeter] 90 94 Respiratory Rate 20 20 22 Blood Pressure [[facility]] 141/81 H 134/82 Pulse Oximetry 88 88 88 Oxygen Delivery Me thod Room Air Room Air Room Air Oxygen Flow Rate Fraction of Inspir ed Oxygen Labs Labs: Laboratory Results - last 24 hr 03/21/24 06:58 WBC 11.74 H RBC 4.27 L Hgb 12.8 L Hct 39.6 MCV 93 MCH 30 MCHC 32 RDW Coeff of Margo 14.1 Plt Count 227 Neut % (Auto) 72.0 Lymph % (Auto) 13.8 L [place] % (Auto) 9.6 Eos % (Auto) 3.0 Baso % (Auto) 0.3 Neut # (Auto) 8.50 H Lymph # (Auto) 1.60 [place] # (Auto) 1.10 H Eos # (Auto) 0.40 Baso # (Auto) 0.00 Abs Immat Gran (auto) 0.20 Imm/Tot Granulo (auto) 1.3
[2024-03-21] MEDS: POTASSIUM BICARB 25 MEQ EFFERVESCENT TAB PO ×2 (15:50→17:44)
--- NOTE | 2024-03-21 15:55 | REH.OT ---
OT: Per interdisciplinary team rounds, MD indicated pt may benefit from wrist cock up splint. Pre-georgi splint which fits patient unavailable in central supply. MD made splint for patient this afternoon. Patient can follow up with OP hand therapist if ongoing needs after discharge.
--- NOTE | 2024-03-21 17:52 | PC.NURSE ---
Shift Summary: Patient pleasant and cooperative. Up with SBA, ambulating frequently in halls. Vitals stable and WNL. MD in room to place brace on left arm, patient has off during meals. New nicotine patch left shoulder. Dr. Hernandez in this morning, removed some natali from midline incision, kerlix packing placed with abd pad, moderate drainage noted around 11am, surgeon back this afternoon around [address] new abd pad. Patient pain well managed with ice and PRN medication. t-max 99 degrees. Regular diet, tolerating well.
[2024-03-21] MEDS: SIMVASTATIN 40 MG TABLET PO (20:24)
[2024-03-21] MEDS: SODIUM CHLORIDE 0.9 % (FLUSH) 10 ML SYRINGE 5 ML IVF (20:25)
[2024-03-21] MEDS: diphenhydrAMINE 25 MG CAPSULE PO (22:55)
[2024-03-22] VITALS (8 sets, daily range): BP systolic 126–142; BP diastolic 69–87; PULSE 82–95; RESP 16–24; TEMP 36.2–36.8; O2SAT 84–92
[2024-03-22] MEDS: HYDROCODONE-ACETAMIN 5-325 MG 1 TAB PO ×6 (03:37→23:31)
[2024-03-22] MEDS: LORazepam 1 MG TABLET PO (04:44)
[2024-03-22] MEDS: PIPERACILLIN/TAZOBACTAM 3.375 GM in 0.9 % SODIUM CHLORIDE Mini-bag 100 ML IVPB (05:36)
[2024-03-22] MEDS: LACTATED RINGERS 1000 ML 1,000 ML 100 ML IV (05:36)
[2024-03-22] MEDS: OMEPRAZOLE 20 MG CAPSULE DR 40 MG PO (06:20)
[2024-03-22] MEDS: LEVOTHYROXINE 25 MCG TABLET PO (06:20)
--- NOTE | 2024-03-22 06:38 | PC.NURSE ---
19-: pleasant and cooperative. Calls appropriately. SBA. VSS. AFebrile. Active Bowel tones, pt reports passing gas, pt attempted to have a BM- unsuccessful. Walked halls x 1 with family. pt rating pain 6-8/10, prn [place] given q4h. Abd pad changed, moderate amount of serosanguineous drainage?noted, kerlix packing in place. Abd binder on. Pt verbalized not being able to sleep, reports poor sleep last couple nights, gave pt 25mg Benadryl, minimal insomnia relief. Called and updated MD, received order for 1mg Ativan PO One ONCE, pt was able to sleep for some hours & tolerate BiPAP mask.
[2024-03-22 06:48] LABS: Ionized Calcium* 1.08 mmol/L (1.11-1.30)
[2024-03-22 07:04] LABS: Basophils Percent Auto 0.3 % (0.0-3.0); Eosinophils Percent Auto 5.8 % (0.0-7.0); Hematocrit 37.2 % (37.0-53.0); Hemoglobin* 11.9 gm/dL (13.5-17.5); Immature Granulocytes Pct Auto 2.1 %; Lymphocytes Percent Auto 17.9 % (20-44); Mean Corpuscular HGB Conc 32 gm/dL (32-36); Mean Corpuscular Hemoglobin 30 pg (26-34); Mean Corpuscular Volume 94 fL (80-100); Monocytes Percent Auto 8.6 % (0.0-11.0); Neutrophils Percent Auto 65.3 % (42.0-72.0); Platelet Count* 239 K/uL (140-440); RDW Coefficient of Variation % 14.3 % (11.5-15.5); Red Blood Count 3.94 m/uL (4.30-5.90); White Blood Count* 12.15 K/uL (4.50-11.00)
[2024-03-22 07:16] LABS: Chloride* 102 mmol/L (96-114); Sodium* 136 mmol/L (135-149)
[2024-03-22 07:17] LABS: Potassium* 3.5 mmol/L (3.6-5.1)
[2024-03-22 07:19] LABS: Anion Gap 5 mEq/L (7-15); Carbon Dioxide* 29 mmol/L (20-32); Creatinine* 1.2 mg/dL (0.5-1.5); Est. Creatinine Clearance* 82.77; Estimated Glomerular Filt Rate 72 ml/min
[2024-03-22 07:20] LABS: Calcium* 8.5 mg/dL (8.4-10.6); Glucose* 120 mg/dL (60-115)
[2024-03-22 07:28] LABS: Blood Urea Nitrogen* 13 mg/dL (7-30)
[2024-03-22 08:04] LABS: Slide Review Reflex Yes
[2024-03-22 08:05] LABS: Slide Review Acceptable Review (Acceptable)
[2024-03-22] MEDS: CALCIUM CARBONATE 500 MG CHEW PO ×2 (08:39→21:12)
[2024-03-22] MEDS: IPRAT-ALBUT 0.5-2.5 MG/3 ML NEB 1 NEB IH ×3 (08:39→21:12)
[2024-03-22] MEDS: NICOTINE 21 MG PATCH 1 PATCH TRANSDERMA (08:39)
[2024-03-22] MEDS: POTASSIUM CHLORIDE 10 MEQ CAPSULE ER 20 MEQ PO ×2 (08:40→21:13)
[2024-03-22] MEDS: SENNOSIDES/DOCUSATE TABLET 1 TAB PO ×2 (08:40→21:13)
[2024-03-22] MEDS: LOSARTAN POTASSIUM 50 MG TABLET 100 MG PO (08:40)
[2024-03-22] MEDS: carvediloL 6.25 MG TABLET 3.125 MG PO ×2 (08:40→21:12)
--- NOTE | 2024-03-22 11:08 | PM.GSPN ---
Subjective Subjective Date Seen: 03/22/24 Interval history: Patient states that he has a lot less pain this morning. He continues to pass gas, no bowel movement yet. He does feel like he ?needs to have a bowel movement?. He has been tolerating a regular diet without difficulty. He is walking the halls and in his room independently. He does continue to need oxygen at times. Overall, he is anxious to go home to [place]. Exam Narrative: Exam Narrative: General: Alert and oriented, no acute distress Abdomen: Obese abdomen. Laparoscopic incisions with Steri-Strips in place. Midline incision with natali in place. Inferior aspect of incision with natali removed. Packing removed with saturated serosanguineous output. No purulent drainage and no evidence of fat necrosis. Very minimal fibrinous exudate within wound bed. Outlined erythema and induration less than yesterday. Underlying fascia palpated and intact. Const: Vital Signs, click to edit/add: Vital Signs - 24 hr 03/21/24 14:37 03/21/24 14:56 03/21/24 19:00 Temperature 99 F 98 F Pulse Rate [Pulse Oximeter] 94 77 Respiratory Rate 20 22 20 Blood Pressure [Ri ght Arm] 134/82 119/78 Pulse Oximetry 88 88 88 Oxygen Delivery Me thod Room Air Room Air Room Air 03/21/24 23:00 03/21/24 23:00 03/21/24 23:00 Temperature 98 F Pulse Rate [Pulse Oximeter] 87 Respiratory Rate 18 18 18 Blood Pressure [Ri ght Arm] 116/71 Pulse Oximetry 90 90 Oxygen Delivery Me thod Room Air Room Air 03/22/24 03:00 03/22/24 07:00 03/22/24 07:00 Temperature 97.2 F L 97.1 F L Pulse Rate [Pulse Oximeter] 85 82 Respiratory Rate 24 18 Blood Pressure [Ri ght Arm] 134/71 126/72 Pulse Oximetry 92 89 89 Oxygen Delivery Me thod Room Air Room Air 03/22/24 07:00 Temperature Pulse Rate [Pulse Oximeter] 82 Respiratory Rate 18 Blood Pressure [Ri ght Arm] Pulse Oximetry Oxygen Delivery Me thod Labs/Imaging Labs Labs: WBC 12.15 Progress Note:A&P Assessment and plan (1) Acute appendicitis: Status: Acute Assessment and Plan: Patient is postop day 5 laparoscopic converted to open appendectomy for perforated appendicitis. He did develop a soft tissue infection within the midline incision, low concern at this time for dehiscence. Recommend continued wet to dry dressings of Vashe soaked Kerlix and outer ABD. The patient's [id number] will be doing the dressing changes at discharge. Erythema and induration is improved. Leukocytosis stable at 12. Patient afebrile and vital signs stable. A culture from the wound was performed over the weekend. Final result shows no MRSA. This does appear to be a entered incorrectly as an MRSA screen- specimen is no longer in lab for testing. With wound improving ok to transition to oral antibiotics. Would recommend broad coverage. -IV Zosyn/Vanco, will transition to Levo and Flagyl -continue to trend fever curve in daily CBC -for pain control: Tylenol, Dilaudid and [place] p.r.n. -regular diet as tolerated - stool softeners, suppository PRN -encourage ambulation, wear abdominal binder. -BID wet to dry dressing changes -SCDs and Lovenox for DVT prophylaxis Possible discharge tomorrow.
[2024-03-22] MEDS: POTASSIUM BICARB 25 MEQ EFFERVESCENT TAB PO (11:16)
[2024-03-22] MEDS: ENOXAPARIN 40 MG/0.4 ML INJ SUBCUT (11:17)
[2024-03-22] MEDS: metroNIDAZOLE 500 MG TABLET PO ×3 (11:17→21:13)
[2024-03-22] MEDS: CALCIUM GLUC 1,000MG/50 ML 1,000 MG/50 ML BAG 100 MG IVPB (11:24)
[2024-03-22] MEDS: levoFLOXacin 750 MG TABLET PO (12:44)
[2024-03-22] MEDS: bisacodyL 10 MG SUPP.RECT PR (12:45)
--- NOTE | 2024-03-22 14:04 | PC.NURSE ---
End of Shift Note: Patient was up in the recliner chair most of this shift and has ambulated x2 so far. Did have a bowel movement after receiving a supp. Took norco x1 for pain. Family just arrived will be checking to see about educating them on his dressing change that will need to be done once a day. Will continue to monitor until next shift arrives.
--- NOTE | 2024-03-22 14:14 | PC.NURSE ---
Went into room to see about doing education or demonstration of his dressing change. Step son and daughter law were present in the room and both stated they are comfortable with the dressing change already that she showed them. Not sure if Dr. Hernandez educated family members. Will continue to try and re-educate on dressing. Did also have a talk with Phil about his oxygen sat. He does not appear to use his IS on his own very much. He has been instructed on the importance of coughing and deep breathing. Explain to him every commercial he needs to either slat pickler his IS and do that or he needs to hug the pillow across his abdomen and do several coughs. Appears to understand this needs to be done as he does not want to go home on oxygen.
--- NOTE | 2024-03-22 15:18 | PM.IMPN1 ---
Progress Note: A&P Assessment and plan (1) Acute appendicitis: Problem details: - Status post open appendectomy by Dr. Hernandez 03/17/24 - VICKI drain removed 03/19 - cares per Dr. Hernandez - wound infection - has been on zosyn/vanco. Change to po antibiotics: levofloxacin and flagyl to cover usual skin bacteria, G- and anaerobics. Do not need MRSA coverage. Status: Acute (2) Hypoxia: Problem details: - Suspect due to atelectasis, LEANNE, hypoventilation-obesity syndrome, abdominal pain/poor inspiration, heavy smoking - CXR showed only low lung volumes - Encourage IS, sitting up in chair, big breaths, coughing, ambulation - Oxygen supplementation as needed to keep O2 sats >88 - Ambulatory O2 study today for home O2. Status: Acute (3) Tobacco dependence syndrome: Problem details: - nicotine replacement and discussed strategies to avoid/deal with triggers Status: Acute (4) Carpal tunnel syndrome of left wrist: Problem details: - Suspected, post op, likely due to volume overload - Stopped IVF - US negative for DVT - elevate LUE - Work with PT/OT - wrist splinted by myself Status: Acute (5) NINFA (acute kidney injury): Problem details: - 03/18 Cr 1.4 today up from 1.1. Suspect prerenal from sepsis/dehydration. Medications reviewed - starting low dose toradol for pain. Hold HCTZ and Losartan. Increase IVF maintenance and recheck in am. If continues to increase, will need to hold toradol also. - 03/19 Cr 1.5. Continue to hold HCTZ and losartan. Stop toradol. Reviewed medications, patient is also on zosyn, but no other renal toxic meds. Bladder scan. Recheck in am. If Cr continues to rise, consider renal US. - 03/20 Cr 1.1, back to baseline today. BP elevated, but will hold HCTZ for one more day due to hypokalemia. Resume lisinopril. - 03/20 Cr 1.2 today (started lisinopril yesterday). Continue lisinopril, hold HCTZ. Status: Acute (6) Hypokalemia: Problem details: - has history of hypokalemia, likely due to use of hydrochlorothiazide - Continue oral replacement, recheck in am. Status: Acute (7) Hypothyroidism: Problem details: - Continue 25 mcg daily. TSH is within normal limits. Status: Chronic (8) Obstructive sleep apnea treated with continuous positive airway pressure (CPAP): Problem details: Using BiPAP p.r.n. for hypopnea in the postop setting. Status: Chronic (9) Morbid obesity: Status: Chronic (10) Hypertension: Problem details: - good control. Continue Coreg, resume lisinopril holding hydrochlorothiazide Status: Chronic (11) Hyperlipidemia: Problem details: Continue statin Status: Chronic (12) Hypogonadism in male: Problem details: Patient has not been taking testosterone lately because he ran out. Status: Chronic Plan VTE prophylaxis with low-dose Lovenox and SCDs. Ambulate frequently as able. Subjective Time Seen by Provider: :15 Date Seen: 03/22/24 Interval history: Phil and I talked about hypoxia and I recommended tobacco cessation. Phil wants to quit cold turkey. We spent 7 minutes discussing smoking cessation, routines and triggers. He is getting anxious to go home because his kids who flew here to pick him up and drive him back own their own business that they need to get back to. Exam Narrative: Exam Narrative: General: No acute distress. Awake, alert, oriented. No pallor. No jaundice. Cardiovascular: Regular rate and rhythm. No murmurs, gallops, or rubs. Respiratory: Clear to auscultation bilaterally. No wheezes. Fine crackle at right base. Abdomen: Protuberant. Bowel sounds present. Erythema around inferior portion of incision, improving. Small open area on skin and fat at base of wound. No purulent discharge. Const: Vital Signs, click to edit/add: Vital Signs - 24 hr 03/21/24 19:00 03/21/24 23:00 03/21/24 23:00 Temperature 98 F 98 F Pulse Rate [Pulse Oximeter] 77 87 Respiratory Rate 20 18 18 Blood Pressure [Le ft Arm] Blood Pressure [Ri ght Arm] 119/78 116/71 Pulse Oximetry 88 90 Oxygen Delivery Me thod Room Air Room Air Fraction of Inspir ed Oxygen 03/21/24 23:00 03/22/24 03:00 03/22/24 07:00 Temperature 97.2 F L 97.1 F L Pulse Rate [Pulse Oximeter] 85 82 Respiratory Rate 18 24 18 Blood Pressure [Le ft Arm] Blood Pressure [Ri ght Arm] 134/71 126/72 Pulse Oximetry 90 92 89 Oxygen Delivery Me thod Room Air Room Air Fraction of Inspir ed Oxygen 03/22/24 07:00 03/22/24 07:00 03/22/24 11:51 Temperature 97.5 F L Pulse Rate [Pulse Oximeter] 82 90 Respiratory Rate 18 16 Blood Pressure [Le ft Arm] 140/69 H Blood Pressure [Ri ght Arm] Pulse Oximetry 89 88 Oxygen Delivery Me thod Room Air Room Air Fraction of Inspir ed Oxygen 03/22/24 12:52 Temperature Pulse Rate [Pulse Oximeter] Respiratory Rate Blood Pressure [Le ft Arm] Blood Pressure [Ri ght Arm] Pulse Oximetry Oxygen Delivery Me thod Fraction of Inspir ed Oxygen 0.25 Labs Labs: Laboratory Results - last 24 hr 03/22/24 06:40 WBC 12.15 H RBC 3.94 L Hgb 11.9 L Hct 37.2 MCV 94 MCH 30 MCHC 32 RDW Coeff of Margo 14.3 Plt Count 239 Neut % (Auto) 65.3 Lymph % (Auto) 17.9 L [place] % (Auto) 8.6 Eos % (Auto) 5.8 Baso % (Auto) 0.3 Neut # (Auto) 7.90 H Lymph # (Auto) 2.20 [place] # (Auto) 1.00 H Eos # (Auto) 0.70 H Baso # (Auto) 0.00 Abs Immat Gran (auto) 0.30 Imm/Tot Granulo (auto) 2.1 Diff Slide Review Acceptable Review Sodium 136 Potassium 3.5 L Chloride 102 Carbon Dioxide 29 Anion Gap 5 L BUN 13 Creatinine 1.2 Estimated Creat Clear 82.77 Estimated GFR 72 Glucose 120 H Calcium 8.5 Ionized Calcium [place] 1.08 L
[2024-03-22] MEDS: SIMVASTATIN 40 MG TABLET PO (21:13)
[2024-03-22] MEDS: SODIUM CHLORIDE 0.9 % (FLUSH) 10 ML SYRINGE 5 ML IVF (21:13)
--- NOTE | 2024-03-22 23:29 | PC.NURSE ---
[id number]: Patient cooperative with cares. Pain managed with PRN medications and active ice. Independent in room. RA at rest, BiPAP at noc, and 4Lt NC with ambulation. Encouraged IS use and provided education on CDB. Patient walked halls x1 during shift. BS active. Adb wound packing and outer dressing changed. Reddened area around incision.
[2024-03-22] MEDS: LORazepam 0.5 MG TABLET PO (23:32)
[2024-03-23 02:59] VITALS: BP 142/82; PULSE 88; RESP 20; TEMP 36.6; O2SAT 90
[2024-03-23] MEDS: IPRAT-ALBUT 0.5-2.5 MG/3 ML NEB 1 NEB IH ×2 (02:59→08:59)
[2024-03-23] MEDS: HYDROCODONE-ACETAMIN 5-325 MG 1 TAB PO ×2 (03:35→09:07)
[2024-03-23] MEDS: LEVOTHYROXINE 25 MCG TABLET PO (06:00)
[2024-03-23] MEDS: OMEPRAZOLE 20 MG CAPSULE DR 40 MG PO (06:00)
[2024-03-23 06:44] LABS: Basophils Percent Auto 0.2 % (0.0-3.0); Eosinophils Percent Auto 3.8 % (0.0-7.0); Hematocrit 36.8 % (37.0-53.0); Hemoglobin* 11.8 gm/dL (13.5-17.5); Immature Granulocytes Pct Auto 3.5 %; Lymphocytes Percent Auto 16.5 % (20-44); Mean Corpuscular HGB Conc 32 gm/dL (32-36); Mean Corpuscular Hemoglobin 30 pg (26-34); Mean Corpuscular Volume 94 fL (80-100); Monocytes Percent Auto 9.6 % (0.0-11.0); Neutrophils Percent Auto 66.4 % (42.0-72.0); Platelet Count* 233 K/uL (140-440); RDW Coefficient of Variation % 14.5 % (11.5-15.5); Red Blood Count 3.91 m/uL (4.30-5.90); White Blood Count* 11.97 K/uL (4.50-11.00)
[2024-03-23 06:45] LABS: Ionized Calcium* 1.14 mmol/L (1.11-1.30)
[2024-03-23 06:48] LABS: Slide Review Reflex Yes
[2024-03-23 07:00] VITALS: BP 131/87; PULSE 90; RESP 20; TEMP 36.7; O2SAT 90
[2024-03-23 07:03] LABS: Chloride* 103 mmol/L (96-114); Potassium* 3.8 mmol/L (3.6-5.1); Sodium* 136 mmol/L (135-149)
[2024-03-23 07:06] LABS: Anion Gap 4 mEq/L (7-15); Blood Urea Nitrogen* 12 mg/dL (7-30); Carbon Dioxide* 29 mmol/L (20-32); Creatinine* 1.1 mg/dL (0.5-1.5); Estimated Glomerular Filt Rate 80 ml/min; Glucose* 134 mg/dL (60-115)
[2024-03-23 07:07] LABS: Calcium* 8.6 mg/dL (8.4-10.6)
--- NOTE | 2024-03-23 07:44 | PC.NURSE ---
Pt alert and oriented x3. Afebrile. Pt reports 5-6/10 pain in abdomen 8/10 when changing dressing, pain managed with PRN medication and cold pack. Pt?s abdominal incision is intact with minor redness. Pt was up to the restroom and soiled his dressing and abdominal binder, changed linen, binder, and dressing. Dressing is CDI. Pt wore Bipap most of night until around 0540. Pt is up Ind/SBA in room. Pt slept intermittently throughout night. ??
[2024-03-23 07:56] LABS: Slide Review Acceptable Review (Acceptable)
--- NOTE | 2024-03-23 08:51 | P.DS_ITS ---
DS: Providers Provider Date Seen: 03/23/24 Date of admission: 03/17/24 14:19 Primary care physician: Damien Terry MD Admitting Clinician: Libby Grullon MD Attending Physician on discharge: John Perkins MD DS: Summary Hospital Course Hospital Course: Patient presented to the emergency department on 03/16/2024 with acute appendicitis. He was taken to the operating room on 03/17/2024 with evidence of perforated appendicitis and stool contamination. The procedure was laparoscopic converted to open appendectomy. A right lower quadrant drain was left in place. The drain was able to be removed on postop day 2. He was able to advance his diet to regular and had return of bowel function. On postop day 4 he developed redness at the incision site and 5 natali were removed on the inferior aspect of the incision. There was an underlying hematoma, no evidence of abscess. Surrounding cellulitis did gradually receded. Wound was left open with wet to dry dressings in place. He was eventually transition from IV antibiotics to oral. The hospitalist service was consulted and assisted with management of the patient's comorbidities throughout his hospitalization. He had hypoxia postoperatively, with requirements of BiPAP at night and O2 intermittently during the day. This improved, however he continues to need intermittent O2 with activity and will be discharged with home O2. He also had evidence of NINFA secondary to sepsis/dehydration. This improved through his hospital stay towards baseline (1.1). Please see hospitalist discharge summary. Patient currently has a doctor's appointment scheduled in [place] on 03/28/2024, recommend removal of natali at that time and re-evaluation of inferior wound. Could consider referral to a local wound center to help assist with healing. Time Spent with Patient Time attestation: Total time spent providing and/or coordinating discharge services: Exam Narrative: Exam Narrative: General: Alert and oriented, no acute distress Abdomen: Obese abdomen. Midline incision with natali in place, some redness around the natali secondary to irritation. Inferior opening of midline incision with Kerlix dressing removed, no fat necrosis or purulence, saturated with serosanguineous fluid. Surrounding erythema and induration significantly improved. Right lower quadrant drain site with minimal drainage and no concern for infection. Lap incisions with Steri-Strips in place clean/dry/intact. Const: Vital Signs, click to edit/add: Vital Signs - 24 hr 03/22/24 11:51 03/22/24 12:52 03/22/24 15:00 Temperature 97.5 F L Pulse Rate [Pulse Oximeter] 90 Respiratory Rate 16 22 Blood Pressure [Le ft Arm] 140/69 H Blood Pressure [Ri ght Arm] Pulse Oximetry 88 91 Oxygen Delivery Me thod Room Air Room Air Fraction of Inspir ed Oxygen 0.25 03/22/24 15:34 03/22/24 19:00 03/22/24 23:33 Temperature 98.1 F 98.2 F 97.9 F Pulse Rate [Pulse Oximeter] 94 95 90 Respiratory Rate 22 20 18 Blood Pressure [Le ft Arm] 142/87 H Blood Pressure [Ri ght Arm] 135/86 130/73 Pulse Oximetry 91 90 89 Oxygen Delivery Me thod Room Air Room Air Room Air Fraction of Inspir ed Oxygen 03/22/24 23:33 03/22/24 23:33 03/23/24 02:59 Temperature 97.9 F Pulse Rate [Pulse Oximeter] 88 Respiratory Rate 16 18 20 Blood Pressure [Le ft Arm] Blood Pressure [Ri ght Arm] 142/82 H Pulse Oximetry 89 90 Oxygen Delivery Me thod Room Air Room Air Fraction of Inspir ed Oxygen DS: Data Data Completed and Pending Labs on day of discharge: Labs from last 24 hours 03/23/24 06:00 WBC 11.97 H RBC 3.91 L Hgb 11.8 L Hct 36.8 L MCV 94 MCH 30 MCHC 32 RDW Coeff of Margo 14.5 Plt Count 233 Neut % (Auto) 66.4 Lymph % (Auto) 16.5 L [place] % (Auto) 9.6 Eos % (Auto) 3.8 Baso % (Auto) 0.2 Neut # (Auto) 7.90 H Lymph # (Auto) 2.00 [place] # (Auto) 1.10 H Eos # (Auto) 0.50 Baso # (Auto) 0.00 Abs Immat Gran (auto) 0.40 H Imm/Tot Granulo (auto) 3.5 Diff Slide Review Acceptable Review Sodium 136 Potassium 3.8 Chloride 103 Carbon Dioxide 29 Anion Gap 4 L BUN 12 Creatinine 1.1 Estimated Creat Clear 90.30 Estimated GFR 80 Glucose 134 H Calcium 8.6 Ionized Calcium [place] 1.14 Discharge Plan Discharge Disposition: Home, Self-Care Date of Admission: 03/17/24 14:19 Attending Provider on Discharge: Ingrid Hernandez Consulting Providers: Leigh Scanlon Primary Care Provider: Provider,Not a Local Condition: Stable Anticipated Discharge Date/Time: 03/21/24 09:00 Discharge Medications: New hydrocodone-acetaminophen 5-325 mg tablet 1 tab PO Q6H PRN (Reason: pain) Qty: 15 0RF senna 8.6 mg capsule 8.6 mg PO DAILY PRN (Reason: constipation) Qty: 90 0RF levofloxacin 750 mg Tablet 750 mg PO Q24H 7 Days Qty: 7 0RF losartan 100 mg tablet 100 mg PO DAILY Qty: 30 0RF metronidazole 500 mg Tablet 500 mg PO QID 7 Days Qty: 28 0RF nicotine 21 mg/24 hr Patch 24 Hour 1 patch transdermal Q24H 14 Days Qty: 14 0RF albuterol sulfate [Ventolin HFA] 90 mcg/actuation HFA aerosol inhaler 2 puff inhalation Q4-6H PRN (Reason: shortness of breath or wheezing) Qty: 8.5 0RF Continued multivitamin Tablet 1 tab PO QDAY (DME) oxygen-air delivery systems Device See Rx Instructions .Route Rx Instructions: As directed omeprazole 20 mg capsule,delayed release(DR/EC) 40 mg PO DAILY biotin 10,000 mcg capsule 10,000 mcg PO DAILY potassium chloride 10 mEq capsule, extended release 10 meq PO QDAY Qty: 90 3RF tadalafil 10 mg tablet 10 - 20 mg PO QDAY PRN (Reason: sexual activity) Qty: 10 11RF Rx Instructions: administer approximately 30min before sexual activity; do not use more than 1 dose per 24hrs levothyroxine 25 mcg tablet 25 mcg PO QDAY simvastatin 40 mg tablet 40 mg PO HS carvedilol 3.125 mg tablet 3.125 mg PO BID Qty: 180 3RF testosterone 20.25 mg/1.25 gram (1.62 %) gel in metered-dose pump 81 mg transdermal DAILY Qty: 150 5RF Discontinued losartan-hydrochlorothiazide 100-25 mg tablet 1 tab PO DAILY Qty: 90 3RF Discharge Orders: Discharge Order (Routine); Ordered 03/23/24 Ordered By: Leigh Scanlon Patient Education: Albuterol (By breathing), Metronidazole (By mouth), Losartan (By mouth), Levofloxacin (By mouth), Hydrocodone (By mouth), Senna (By mouth), General Anesthesia (DC), Laparoscopic Appendectomy (DC), Post-Operative Instructions: Appendectomy Additional Instructions: You were prescribed a narcotic pain medication. In addition you may supplement with Tylenol and/or ibuprofen. Be sure to not exceed greater than 4 g of Tylenol in a 24 hour period. While on narcotic pain medicine please take stool softeners. A prescription of stool softeners has been sent to the pharmacy. Stop if having greater than 2 stools per day. You have natali in place. These should be removed 10-14 days after your operation. Steri-Strip dressing are over the laparoscopic incisions. These bandages will fall off on their own. The wound dressing should be changed once a day. Keep the area clean. You are okay to shower, let soap and water run over your abdomen. Do not soak in a bath, swim or go in a hot tub until your wound is completely healed. For any questions or concerns please feel free to call Dr. Hernandez's office . Oxygen with activity via [place] @ [facility] - Labs: [place], [place] in 5-7 days with your PCP. Activity Level: No strenuous activity Activity Detail: Activity as tolerated. Avoid strenuous activity. No lifting greater than 20 lb for 6 weeks. Discharge Diet: Regular Follow Up Appointments: Provider,Not a Local [Primary Care Provider] - (5-7 days, [place], [place]) Forms: [employer] Info Instructions
[2024-03-23] MEDS: CALCIUM CARBONATE 500 MG CHEW PO (08:57)
[2024-03-23] MEDS: carvediloL 6.25 MG TABLET 3.125 MG PO (08:59)
[2024-03-23] MEDS: POTASSIUM CHLORIDE 10 MEQ CAPSULE ER 20 MEQ PO (08:59)
[2024-03-23] MEDS: SENNOSIDES/DOCUSATE TABLET 1 TAB PO (09:00)
[2024-03-23] MEDS: metroNIDAZOLE 500 MG TABLET PO ×2 (09:08→11:48)
[2024-03-23] MEDS: LOSARTAN POTASSIUM 50 MG TABLET 100 MG PO (09:08)
[2024-03-23] MEDS: NICOTINE 21 MG PATCH 1 PATCH TRANSDERMA (09:08)
[2024-03-23] MEDS: SODIUM CHLORIDE 0.9 % (FLUSH) 10 ML SYRINGE 5 ML IVF (09:09)
[2024-03-23] MEDS: ENOXAPARIN 40 MG/0.4 ML INJ SUBCUT (09:09)
--- NOTE | 2024-03-23 10:11 | PM.DS1 ---
DS: Providers Provider Time Seen by Provider: 08:15 Date Seen: 03/23/24 Date of admission: 03/17/24 14:19 Primary care physician: Damien Terry MD Admitting Clinician: Libby Grullon MD Attending Physician on discharge: Leigh Scanlon MD Date of Discharge: 03/23/24 DS: Diagnosis Discharge Diagnosis (1) Acute appendicitis: Status: Acute Problem details: - Status post open appendectomy by Dr. Hernandez 03/17/24 - VICKI drain removed 03/19 - cares per Dr. Hernandez - wound infection - has been on zosyn/vanco. Changed to po antibiotics 03/22: levofloxacin and flagyl to cover usual skin bacteria, G- and anaerobics. Do not need MRSA coverage. (2) Hypoxia: Status: Acute Problem details: - Suspect due to atelectasis, LEANNE, hypoventilation-obesity syndrome, abdominal pain/poor inspiration, heavy smoking - CXR showed only low lung volumes - Encourage IS, sitting up in chair, big breaths, coughing, ambulation - Oxygen supplementation as needed to keep O2 sats >88 - Home O2 needed. (3) Tobacco dependence syndrome: Status: Acute Problem details: - nicotine replacement and discussed strategies to avoid/deal with triggers (4) Carpal tunnel syndrome of left wrist: Status: Acute Problem details: - Suspected, post op, likely due to swelling in that arm, improving - Stopped IVF - US negative for DVT - elevate LUE - Work with PT/OT - he ordered wrist splints that are waiting for him at home. I recommended that he wear them at night (5) NINFA (acute kidney injury): Status: Acute Problem details: - 03/18 Cr 1.4 today up from 1.1. Suspect prerenal from sepsis/dehydration. Medications reviewed - starting low dose toradol for pain. Hold HCTZ and Losartan. Increase IVF maintenance and recheck in am. If continues to increase, will need to hold toradol also. - 03/19 Cr 1.5. Continue to hold HCTZ and losartan. Stop toradol. Reviewed medications, patient is also on zosyn, but no other renal toxic meds. Bladder scan. Recheck in am. If Cr continues to rise, consider renal US. - 03/20 Cr 1.1, back to baseline today. BP elevated, but will hold HCTZ for one more day due to hypokalemia. Resume lisinopril. - 03/20 Cr 1.2 today (started lisinopril yesterday). Continue lisinopril, hold HCTZ. -03/23 Cr stable at 1.1. Continue lisinopril. Hold HCTZ. Pt to see PCP 5-7 days with CBC, BMP (6) Hypothyroidism: Status: Chronic Problem details: - Continue 25 mcg daily. TSH is within normal limits. (7) Obstructive sleep apnea treated with continuous positive airway pressure (CPAP): Status: Chronic Problem details: Use home CPAP upon returning home (8) Hypertension: Status: Chronic Problem details: - good control. Continue Coreg, lisinopril holding hydrochlorothiazide (9) Hyperlipidemia: Status: Chronic Problem details: Continue statin (10) Hypogonadism in male: Status: Chronic Problem details: Patient has not been taking testosterone lately because he ran out. -F/u with PCP DS: Summary Hospital Course Hospital Course: Patient presented to the emergency department on 03/16/2024 with acute appendicitis. He was taken to the operating room on 03/17/2024 with evidence of perforated appendicitis and stool contamination. The procedure was laparoscopic converted to open appendectomy. A right lower quadrant drain was left in place. The drain was able to be removed on postop day 2. He was able to advance his diet to regular and had return of bowel function. On postop day 4 he developed redness at the incision site and 5 natali were removed on the inferior aspect of the incision. There was an underlying hematoma, no evidence of abscess. Surrounding cellulitis did gradually receded. Wound was left open with wet to dry dressings in place. He was eventually transition from IV antibiotics to oral. The hospitalist service was consulted and assisted with management of the patient's comorbidities throughout his hospitalization. He had hypoxia postoperatively, with requirements of BiPAP at night and O2 intermittently during the day. This improved, however he continues to need intermittent O2 with activity and will be discharged with home O2. He also had evidence of NINFA secondary to sepsis/dehydration. This improved through his hospital stay towards baseline (1.1). Please see hospitalist discharge summary. Patient currently has a doctor's appointment scheduled in [place] on 03/28/2024, recommend removal of natali at that time and re-evaluation of inferior wound. Could consider referral to a local wound center to help assist with healing. Time Spent with Patient Time attestation: Total time spent providing and/or coordinating discharge services: Exam Narrative: Exam Narrative: General: No acute distress. Awake, alert, oriented. No pallor. No jaundice. Cardiovascular: Regular rate and rhythm. No murmurs, gallops, or rubs. Respiratory: Clear to auscultation bilaterally. No wheezes or crackles. Abdomen: Protuberant. Bowel sounds present. Erythema around inferior portion of incision continues to improve. Small open area on skin and fat at base of wound. No purulent discharge. Const: Vital Signs, click to edit/add: Vital Signs - 24 hr 03/22/24 11:51 03/22/24 12:52 03/22/24 15:00 Temperature 97.5 F L Pulse Rate [Pulse Oximeter] 90 Respiratory Rate 16 22 Blood Pressure [Le ft Arm] 140/69 H Blood Pressure [Ri ght Arm] Pulse Oximetry 88 91 Oxygen Delivery Me thod Room Air Room Air Fraction of Inspir ed Oxygen 0.25 03/22/24 15:34 03/22/24 19:00 03/22/24 23:33 Temperature 98.1 F 98.2 F 97.9 F Pulse Rate [Pulse Oximeter] 94 95 90 Respiratory Rate 22 20 18 Blood Pressure [Le ft Arm] 142/87 H Blood Pressure [Ri ght Arm] 135/86 130/73 Pulse Oximetry 91 90 89 Oxygen Delivery Me thod Room Air Room Air Room Air Fraction of Inspir ed Oxygen 03/22/24 23:33 03/22/24 23:33 03/23/24 02:59 Temperature 97.9 F Pulse Rate [Pulse Oximeter] 88 Respiratory Rate 16 18 20 Blood Pressure [Le ft Arm] Blood Pressure [Ri ght Arm] 142/82 H Pulse Oximetry 89 90 Oxygen Delivery Me thod Room Air Room Air Fraction of Inspir ed Oxygen DS: Data Data Completed and Pending Completed studies during hospitalization: 03/16/2024 EKG: Normal sinus rhythm, 90 beats per minute, normal EKG. Ordering Physician: Don Soria M.D. Date of Service: 03/16/24 Procedure(s): CT abdomen pelvis w con Accession Number(s): [id number] cc: Damien Terry M.D.; Don Soria M.D.~ For Patients: As a result of the Cures Act, medical imaging exams and procedure reports are released immediately into your electronic medical record. You may view this report before your referring provider. If you have questions, please contact your health care provider. INDICATION: Right-sided abdominal pain. TECHNIQUE: CT abdomen and pelvis acquired with 149 cc of Isovue 370 IV contrast. COMPARISON: None. FINDINGS: Lower chest: Thin band of scar versus atelectasis in the right lower lobe. Liver: Unremarkable. Normal in size and attenuation. No suspicious masses. Gallbladder and bile ducts: Unremarkable. No stones or inflammation. No biliary dilatation. Pancreas: Unremarkable. No mass or inflammation. Spleen: Unremarkable. Normal in size. No masses. Adrenal glands: Unremarkable. No nodules. Kidneys: Unremarkable. No suspicious masses, stones, or hydronephrosis. GI tract: Small air-filled duodenal diverticulum in the 3rd portion of the duodenum. Markedly inflamed and dilated appendix in the right lower quadrant measuring 1.8 cm in diameter with robust periappendiceal inflammatory stranding. No evidence for perforation or abscess formation. Associated inflammation of the cecal base. No small bowel obstruction. The remainder of the colon is unremarkable. Vasculature: Abdominal aorta is normal in caliber. Mesenteric arteries are patent. Lymph nodes: No lymphadenopathy. Peritoneum/Abdominal Wall: Right lower quadrant inflammatory stranding. No free fluid, focal fluid collection, or free air. Unremarkable abdominal wall. Pelvis: Unremarkable. Bones: Unremarkable for age. IMPRESSION: Severely inflamed, acute appendicitis in the right lower quadrant. No evidence for perforation or abscess formation. Please note that all CT scans at this facility use dose modulation, iterative reconstruction, and/or weight-based dosing when appropriate to reduce radiation dose to as low as reasonably achievable. Dictated by Shaun Iniguez MD @ 03/16/2024 11:32:58 PM (Electronically Signed) Ordering Physician: Leigh Scanlon M.D. Date of Service: 03/19/24 Procedure(s): XR chest 1V portable Accession Number(s): [id number] cc: Damien Terry M.D.; Leigh Scanlon M.D.~ For Patients: As a result of the Cures Act, medical imaging exams and procedure reports are released immediately into your electronic medical record. You may view this report before your referring provider. If you have questions, please contact your health care provider. INDICATION: Hypoxia, recent abdominal surgery TECHNIQUE: 1 view chest radiograph COMPARISON: None. FINDINGS: Devices: None. Lung volumes are very low. Diffuse vascular crowding without any focal opacities. No pleural effusion. No pneumothorax. Heart size is within normal limits for lung volumes and technique. IMPRESSION: Very low lung volumes. Dictated by Ludy Jack MD @ 03/19/2024 9:13:12 AM (Electronically Signed) Ordering Physician: Leigh Scanlon M.D. Date of Service: 03/19/24 Procedure(s): US venous UE LT Accession Number(s): [id number] cc: Damien Terry M.D.; Leigh Scanlon M.D.~ For Patients: As a result of the Cures Act, medical imaging exams and procedure reports are released immediately into your electronic medical record. You may view this report before your referring provider. If you have questions, please contact your health care provider. INDICATION: Left hand swelling and numbness COMPARISON: None. TECHNIQUE: Dixon-scale, color, and duplex Doppler imaging of the left upper extremity veins. Compression and augmentation attempted where anatomically and clinically feasible. FINDINGS: Laterality: Left Examined veins: Internal jugular, innominate, subclavian, axillary, brachial, ulnar, radial Basilic, cephalic The examined veins are patent with normal grayscale appearance and normal compressibility where anatomically feasible. Normal color Doppler flow. Normal venous waveforms on duplex Doppler ultrasound with normal augmentation. The right internal jugular vein was sampled for comparison and is normal. IMPRESSION: No deep vein thrombosis in the left upper extremity. Dictated by Ludy Jack MD @ 03/19/2024 10:26:02 AM (Electronically Signed) Labs on day of discharge: Labs from last 24 hours 03/23/24 06:00 WBC 11.97 H RBC 3.91 L Hgb 11.8 L Hct 36.8 L MCV 94 MCH 30 MCHC 32 RDW Coeff of Margo 14.5 Plt Count 233 Neut % (Auto) 66.4 Lymph % (Auto) 16.5 L [place] % (Auto) 9.6 Eos % (Auto) 3.8 Baso % (Auto) 0.2 Neut # (Auto) 7.90 H Lymph # (Auto) 2.00 [place] # (Auto) 1.10 H Eos # (Auto) 0.50 Baso # (Auto) 0.00 Abs Immat Gran (auto) 0.40 H Imm/Tot Granulo (auto) 3.5 Diff Slide Review Acceptable Review Sodium 136 Potassium 3.8 Chloride 103 Carbon Dioxide 29 Anion Gap 4 L BUN 12 Creatinine 1.1 Estimated Creat Clear 90.30 Estimated GFR 80 Glucose 134 H Calcium 8.6 Ionized Calcium [place] 1.14 Discharge Plan Discharge Disposition: Home, Self-Care Date of Admission: 03/17/24 14:19 Attending Provider on Discharge: Ingrid Hernandez Consulting Providers: Leigh Scanlon Primary Care Provider: Provider,Not a Local Condition: Stable Anticipated Discharge Date/Time: 03/21/24 09:00 Discharge Medications: New hydrocodone-acetaminophen 5-325 mg tablet 1 tab PO Q6H PRN (Reason: pain) Qty: 15 0RF senna 8.6 mg capsule 8.6 mg PO DAILY PRN (Reason: constipation) Qty: 90 0RF levofloxacin 750 mg Tablet 750 mg PO Q24H 7 Days Qty: 7 0RF losartan 100 mg tablet 100 mg PO DAILY Qty: 30 0RF metronidazole 500 mg Tablet 500 mg PO QID 7 Days Qty: 28 0RF nicotine 21 mg/24 hr Patch 24 Hour 1 patch transdermal Q24H 14 Days Qty: 14 0RF albuterol sulfate [Ventolin HFA] 90 mcg/actuation HFA aerosol inhaler 2 puff inhalation Q4-6H PRN (Reason: shortness of breath or wheezing) Qty: 8.5 0RF Continued multivitamin Tablet 1 tab PO QDAY (DME) oxygen-air delivery systems Device See Rx Instructions .Route Rx Instructions: As directed omeprazole 20 mg capsule,delayed release(DR/EC) 40 mg PO DAILY biotin 10,000 mcg capsule 10,000 mcg PO DAILY potassium chloride 10 mEq capsule, extended release 10 meq PO QDAY Qty: 90 3RF tadalafil 10 mg tablet 10 - 20 mg PO QDAY PRN (Reason: sexual activity) Qty: 10 11RF Rx Instructions: administer approximately 30min before sexual activity; do not use more than 1 dose per 24hrs levothyroxine 25 mcg tablet 25 mcg PO QDAY simvastatin 40 mg tablet 40 mg PO HS carvedilol 3.125 mg tablet 3.125 mg PO BID Qty: 180 3RF testosterone 20.25 mg/1.25 gram (1.62 %) gel in metered-dose pump 81 mg transdermal DAILY Qty: 150 5RF Discontinued losartan-hydrochlorothiazide 100-25 mg tablet 1 tab PO DAILY Qty: 90 3RF Discharge Orders: Discharge Order (Routine); Ordered 03/23/24 Ordered By: Leigh Scanlon Patient Education: General Anesthesia (DC), Laparoscopic Appendectomy (DC), Post-Operative Instructions: Appendectomy Additional Instructions: You were prescribed a narcotic pain medication. In addition you may supplement with Tylenol and/or ibuprofen. Be sure to not exceed greater than 4 g of Tylenol in a 24 hour period. While on narcotic pain medicine please take stool softeners. A prescription of stool softeners has been sent to the pharmacy. Stop if having greater than 2 stools per day. You have natali in place. These should be removed 10-14 days after your operation. Steri-Strip dressing are over the laparoscopic incisions. These bandages will fall off on their own. The wound dressing should be changed once a day. Keep the area clean. You are okay to shower, let soap and water run over your abdomen. Do not soak in a bath, swim or go in a hot tub until your wound is completely healed. For any questions or concerns please feel free to call Dr. Hernandez's office . Oxygen with activity via [place] @ [facility] - Labs: CBC, BMP in 5-7 days with your PCP. Activity Level: No strenuous activity Activity Detail: Activity as tolerated. Avoid strenuous activity. No lifting greater than 20 lb for 6 weeks. Discharge Diet: Regular Follow Up Appointments: Provider,Not a Local [Primary Care Provider] - (5-7 days, BMP, CBC) Forms: [employer] Info Instructions
[2024-03-23] MEDS: levoFLOXacin 750 MG TABLET PO (11:48)
--- NOTE | 2024-03-23 14:43 | RESP.RT ---
Home Oxygen safety information given to Patient and 2 family members. They understand and verbally state so. How to use portable tanks, with NC, Oxygen settings, turning On/off, and tank safety.
== END 2024-03-23 12:00 | disposition home or self-care (01) | DRG 225 ==
LOC: ED 23:38 → MS OUT 03-17 01:25 → MEDSURG 03-17 01:28 → MS OUT 03-17 13:39 → MEDSURG 03-17 13:39
PROVIDERS: Family Medicine; Admitting Provider Surgery; Emergency Provider Family Medicine; Visit Provider Internal Medicine
PROC: 0DTJ4ZZ Resection of Appendix, Percutaneous Endoscopic Approach (ICD-10-PCS; CPT 44970; principal; 2024-03-17 08:00)
DX: K35.32 Acute appendicitis with perforation, localized peritonitis, and gangrene, without abscess (principal); A41.9 Sepsis, unspecified organism; N17.8 Other acute kidney failure; L76.32 Postprocedural hematoma of skin and subcutaneous tissue following other procedure; T81.49XA Infection following a procedure, other surgical site, initial encounter; L03.311 Cellulitis of abdominal wall; G89.18 Other acute postprocedural pain; D62 Acute posthemorrhagic anemia; J95.89 Other postprocedural complications and disorders of respiratory system, not elsewhere classified; J98.11 Atelectasis; R09.02 Hypoxemia; E87.6 Hypokalemia; G56.02 Carpal tunnel syndrome, left upper limb; E66.2 Morbid (severe) obesity with alveolar hypoventilation; Z68.42 Body mass index [BMI] 45.0-49.9, adult; Z99.89 Dependence on other enabling machines and devices; F17.210 Nicotine dependence, cigarettes, uncomplicated; I10 Essential (primary) hypertension; E03.9 Hypothyroidism, unspecified; E29.1 Testicular hypofunction; E78.5 Hyperlipidemia, unspecified; B96.89 Other specified bacterial agents as the cause of diseases classified elsewhere
CPT/HCPCS: 00840; 36415; 51798; 64488; 71045; 74177; 76942; 80048; 80076; 81001; 82150; 82330; 83735; 84132; 84443; 85025; 86140; 87081; 87086; 88304; 93005; 93971; 94640; 94660; 94761; 99140; 99285; A4344; A4467; A9270; C9290; G0378; J0131; J0330; J0613; J0665; J1100; J1170; J1200; J1650; J1885; J2270; J2405; J2543; J2704; J3010; J3370; J3480; J3490; J7030; J7050; J7120; Q9967; S4990